=== PATIENT | male | born 1960 | race Caucasian/White ===

== ENCOUNTER 2017-02-21 18:53 | Inpatient (IN) | payer OTHER, MEDICARE ==
[2017-02-21 20:52] LABS: Glucose,Whole Blood 218 mg/dL (75-99)
[2017-02-21] MEDS ORDERED: VANCOMYCIN IV PER PHARMACY 1 EACH MISC MISCELLANE PRN (23:08)
[2017-02-21] MEDS ORDERED: traMADol 50 MG TAB PO PRN (23:15)
[2017-02-21] MEDS ORDERED: INSULIN GLARGINE 100 UNIT/ML 10 ML VIAL SQ SCH (23:15)
[2017-02-21] MEDS ORDERED: ACETAMINOPHEN TAB 325 MG TAB PO PRN (23:16)
[2017-02-21] MEDS ORDERED: ONDANSETRON 4 MG/2 ML VIAL IVP PRN (23:17)
[2017-02-21] MEDS ORDERED: MELATONIN 5 MG TABLET PO PRN (23:18)
[2017-02-22] MEDS: HEPARIN SODIUM,PORCINE 5,000 UNIT/ML 1 ML VIAL SQ SCH ×3 (00:26→21:19)
[2017-02-22] MEDS: SODIUM CHLORIDE 0.9% 1,000 ML IV SCH ×3 (00:27→19:28)
[2017-02-22] MEDS: ERTAPENEM 1 GM in SODIUM CHLORIDE 0.9% 50 ML IVPB SCH ×2 (00:28→22:56)
[2017-02-22] MEDS: PANTOPRAZOLE 40 MG/10 ML VIAL IVP SCH ×2 (00:28→08:52)
[2017-02-22] MEDS: INSULIN LISPRO (humaLOG) 300 UNIT/3 ML VIAL SQ SCH ×3 (00:51→12:51)
[2017-02-22] MEDS ORDERED: VANCOMYCIN 1,500 MG in SODIUM CHLORIDE 0.9% 250 ML IVPB SCH (04:00)
[2017-02-22 05:32] LABS: Glucose,Whole Blood 208 mg/dL (75-99)
--- NOTE | 2017-02-22 07:26 | CONS ---
CONSULTATION This is a 56-year-old gentleman who has been transferred from [facility] with history of right foot, big toe wet gangrene. He had this for the last 1 week. He went to [facility] and has been transferred to [facility] for further treatment. Patient has no history of trauma or insect bite. Patient does not give any history of diabetes. MEDICAL HISTORY: No history of hypertension, coronary artery disease. PERSONAL HISTORY: Allergy to PENICILLIN. PHYSICAL EXAMINATION: Neck is supple. No bruit appreciated. CHEST: Clear to auscultation. HEART: First and second sound is normal. ABDOMEN: Soft, nontender. VASCULAR EXAMINATION: Femorals are palpable bilaterally, dorsal pedis is palpable. Right foot has a wet gangrene of the big toe and with foul odor smell. IMPRESSION: Wet gangrene of the right foot, big toe. PLAN: Right big toe amputation. Risks and complications of bleeding, infection, nonhealing has been discussed. MMODL / IJN: [id number] /
--- NOTE | 2017-02-22 07:38 | XR ---
EXAMINATION TYPE: XR chest 2V DATE OF EXAM: 02/22/2017 COMPARISON: NONE HISTORY: Preoperative clearance. TECHNIQUE: Frontal and lateral views of the chest are obtained. FINDINGS: There is no focal air space opacity, pleural effusion, or pneumothorax seen. The cardiac silhouette size is within normal limits. The osseous structures are intact. IMPRESSION: No acute cardiopulmonary process.
[2017-02-22 10:06] LABS: Basophils % (A) 1 %; CH 28.4; CHCM 31.8; Eosinophils # (A) 0.1 k/uL (0-0.7); Eosinophils % (A) 1 %; HCT 33.3 % (39.0-53.0); HDW 2.68; HGB 10.6 gm/dL (13.0-17.5); Hypochromasia Slight; Luc # (Auto) 0.12; Luc % (Auto) 2; Lymphocytes # (A) 1.3 k/uL (1.0-4.8); Lymphocytes % (A) 23 %; MCH 28.6 pg (25.0-35.0); MCHC 31.8 g/dL (31.0-37.0); MCV 89.7 fL (80.0-100.0); Mean Platelet Volume 7.4; Monocytes # (A) 0.3 k/uL (0-1.0); Monocytes % (A) 5 %; Neutrophils # (A) 3.9 k/uL (1.3-7.7); Neutrophils % (A) 68 %; RBC 3.71 m/uL (4.30-5.90); RDW 12.8 % (11.5-15.5); WBC 5.8 k/uL (3.8-10.6); WBC (Perox) 6.18
[2017-02-22 10:20] LABS: ALT 42 U/L (21-72); AST 19 U/L (17-59); Alkaline Phosphatase 118 U/L (38-126); Anion Gap 4 mmol/L; Blood Urea Nitrogen 10 mg/dL (9-20); Calcium 8.7 mg/dL (8.4-10.2); Carbon Dioxide 29 mmol/L (22-30); Chloride 104 mmol/L (98-107); Glucose 211 mg/dL (74-99); Magnesium 1.9 mg/dL (1.6-2.3); Non-African American GFR(MDRD) >60 (>60 ml/min/1.73 sqM); Potassium 4.3 mmol/L (3.5-5.1); Sodium 137 mmol/L (137-145); Total Bilirubin 0.3 mg/dL (0.2-1.3); Total Protein 6.3 g/dL (6.3-8.2)
[2017-02-22 12:25] LABS: Glucose,Whole Blood 162 mg/dL (75-99)
[2017-02-22 14:47] VITALS: BMI 29.4
[2017-02-22] MEDS: VANCOMYCIN 1,750 MG in SODIUM CHLORIDE 0.9% 250 ML IVPB SCH (15:13)
[2017-02-22] MEDS ORDERED: metroNIDAZOLE 500 MG TAB PO SCH (16:00)
[2017-02-22 16:56] LABS: Glucose,Whole Blood 165 mg/dL (75-99)
[2017-02-22] MEDS: INSULIN ASPART 100 UNIT/ML 1 ML 10 ML VIAL SQ SCH ×2 (18:13→23:39)
[2017-02-22 20:36] LABS: Glucose,Whole Blood 164 mg/dL (75-99)
[2017-02-22] MEDS: INSULIN DETEMIR 100 UNIT/ML 10 ML VIAL SQ SCH (21:19)
--- NOTE | 2017-02-22 22:04 | P.HPIM ---
History of Present Illness H&P Date: 02/22/17 Chief Complaint: Right big toe infection Patient is a 56-year-old male without significant past medical history and has not followed primary care physician before was [facility] with complaints of right big toe infection worsening for the past 1 week. Patient does have subjective chills and no fevers. Due to worsening infection patient presented to ER and patient was transferred to [facility] for evaluation by vascular surgery. Patient denied any history of hypertension or diabetes mellitus. Patient does not take any medications at home. patient does smoke daily.. No history of peripheral vascular disease. No complaints of chest pain or short of breath. No nausea vomiting or abdominal pain. No recent trauma or insect bite cellulitis recently. Review of Systems Constitutional: Patient denies any fever or chills . No generalized weakness or weight loss. Abdomen: Patient denied nausea vomiting and diarrhea and abdominal pain. Cardiovascular: Patient denies any chest pain or short of breath no palpitations. Respiratory: patient denied any cough is from production. No shortness of breath Neurologic: Patient denied any numbness or tingling headache. Musculoskeletal: Patient denies any complaints of joint swelling or deformity. Skin: Negative Psychiatric: Negative Endocrine: No heat or cold intolerance. Denied any polyuria or polydipsia Genitourinary: No dysuria or hematuria. All other 14 point ROS negative except the above Past Medical History History of Any Multi-Drug Resistant Organisms: None Reported Past Surgical History: No Surgical Hx Reported Additional Past Anesthesia/Blood Transfusion Reaction / Comment(s): Never received blood or ansthesia Past Psychological History: No Psychological Hx Reported Smoking Status: Former smoker - Past Family History Mother Additional Family Medical History / Comment(s): Mother of pancreatic cancer Father Additional Family Medical History / Comment(s): Father had CABG Medications and Allergies Home Medications Medication Instructions Recorded Confirmed Type No Known Home Medications [No 02/21/17 02/21/17 History Known Home Medications] Allergies Allergy/AdvReac Type Severity Reaction Status Date / Time Penicillins Allergy Rash/Hives Verified 02/21/17 22:46 Physical Exam Vitals: Vital Signs Temp Pulse Resp BP Pulse Ox 02/22/17 14:31 97.0 F L 89 16 133/73 95 02/22/17 07:00 96.9 F L 92 18 149/85 95 02/22/17 00:00 101 H 16 02/21/17 20:50 97.6 F 101 H 16 148/90 100 Intake and Output 02/22/17 02/22/17 02/22/17 06:59 14:59 22:59 Intake Total 0 800 Balance 0 800 Intake: IV 800 Sodium Chloride 0.9% 1, 800 000 ml @ 100 mls/hr IV . Q10H FÁTIMA Rx#:[id number] Oral 0 Other: # Voids 2 3 Weight 98.5 kg 98.5 kg Patient Weight 02/23/17 06:59 Weight 98.5 kg PHYSICAL EXAMINATION: Patient is lying in the bed comfortably, no acute distress, awake alert and oriented.. HEENT: Normocephalic. Neck is supple. Pupils reactive. Nostrils clear. Oral cavity is moist. Ears reveal no drainage. Neck reveals no JVD, carotid bruits, or thyromegaly. CHEST EXAMINATION: Trachea is central. Symmetrical expansion. Lung minor clear to auscultation and percussion. CARDIAC: Normal S1, S2 with no gallops. No murmurs ABDOMEN: Soft. Bowel sounds normal. No organomegaly. No abdominal bruits. Extremities: reveal no edema. No clubbing or cyanosis. Pulses palpable bilaterally. Neurologically awake, alert, oriented x3 with well-coordinated movements. No focal deficits noted Skin: No rash or skin lesions. Psychiatric: Operative. Nonsuicidal Musculoskeletal: No joint swelling or deformity. Normal range of motion. Right foot big toe wet gangrene and foul swelling Results CBC & Chem 7: 02/22/17 09:35 02/22/17 09:35 Labs: Abnormal Lab Results - Last 24 Hours (Table) 02/21/17 02/22/17 02/22/17 Range/Units 20:49 05:29 09:35 RBC 3.71 L (4.30-5.90) m/uL Hgb 10.6 L (13.0-17.5) gm/dL Hct 33.3 L (39.0-53.0) % Creatinine (0.66-1.25) mg/dL Glucose (74-99) mg/dL POC Glucose (mg/dL) 218 H 208 H (75-99) mg/dL Albumin (3.5-5.0) g/dL 02/22/17 02/22/17 Range/Units 09:35 12:23 RBC (4.30-5.90) m/uL Hgb (13.0-17.5) gm/dL Hct (39.0-53.0) % Creatinine 0.60 L (0.66-1.25) mg/dL Glucose 211 H (74-99) mg/dL POC Glucose (mg/dL) 162 H (75-99) mg/dL Albumin 2.7 L (3.5-5.0) g/dL Thrombosis Risk Factor Assmnt - Choose All That Apply Each Factor Represents 1 point: Age 41-60 years, Swollen legs (current) Thrombosis Risk Factor Assessment Total Risk Factor Score: 2 Thrombosis Risk Factor Assessment Level: Low Risk Assessment and Plan Assessment: #1 right foot wet gangrene. #2 hyperglycemia on admission with possible new onset diabetes. HbA1c pending #3 normocytic anemia #4 active smoking Plan: Patient will be continued on IV antibiotics and follow aztreonam and vancomycin. ID was consulted. Vascular surgery has seen the patient and recommended great toe amputation possibly tomorrow. We will follow A1c level. Patient will be continued on Lantus 10 units daily at bedtime and insulin sliding scale. Continue with wound care. Smoking cessation was counseled extensively. Further recommendations based on the clinical course. Time with Patient: Greater than 30
--- NOTE | 2017-02-22 23:35 | CONS ---
CONSULTATION DATE OF SERVICE: 02/22/2017. REASON FOR CONSULTATION: Right big toe wet gangrene antibiotic recommendation. HISTORY OF PRESENT ILLNESS: The patient is a 56-year-old male with no significant past medical history; however, the patient has not seen a physician in over 25 years. The patient did develop a small ulceration on his right great toe about a month ago and has been treating care taking of himself at home by using some local antibiotic cream. Over the last few days, it has become more swollen, red and he noticed to have some black discoloration to it. The patient denies any pain to the foot area. The patient denies any fever, rigors and chills. With this black discoloration, the patient did present to the [facility]. The patient was subsequently transferred to the [facility] for further evaluation. The patient on a blood workup was noticed to be diabetic with elevated blood sugar that he was not aware of or taking any medication for it. The patient did have history of PENICILLIN ALLERGY. He was started on Invanz and vancomycin. ID was consulted for further recommendation of antibiotic therapy. The patient has been seen by a vascular surgeon, who is planning for an amputation of the right big toe this afternoon. REVIEW OF SYSTEMS: CONSTITUTIONAL: Positive for weakness. No high-grade fever. EYES: No complaint. ENT: No complaint. RESPIRATORY: No complaint. CARDIOVASCULAR: No complaint. GENITOURINARY: No complaint. GASTROINTESTINAL: No complaint. MUSCULOSKELETAL: As per HPI. INTEGUMENTARY: As per HPI. PSYCHOLOGICAL: No complaint. ENDOCRINE: No complaint. NEUROLOGICAL: No complaint. PAST MEDICAL HISTORY: No major illnesses. PAST SURGICAL HISTORY: No major surgery. SOCIAL HISTORY: The patient is . Denies smoking, drinking or any drug use. FAMILY HISTORY: No pertinent findings noticed. ALLERGIES: PENICILLIN WITH A RASH. NO HISTORY OF ANAPHYLAXIS. MEDICATIONS: Include the patient is on: 1. Tylenol. 2. Invanz. 3. Vancomycin. Pharmacy to dose. 4. Heparin. 5. NovoLog. 6. Levemir. 7. Melatonin. 8. Zofran. 9. Protonix. 10.Ultram. EXAMINATION: Blood pressure is 133/73 with a pulse of 89, temperature of 97. He is 95%. GENERAL DESCRIPTION: He is a middle-aged male lying in bed in no distress. No tachypnea or accessory muscle of respiration use. HEENT: Shows some slight pallor. No scleral icterus. Oral mucous membranes dry. NECK: Trachea central. No thyromegaly. LUNGS: Unlabored breathing. Clear to auscultation anteriorly. HEART: S1, S2. Regular rate and rhythm. ABDOMEN: Soft. No tenderness. No guarding or rigidity. EXTREMITIES: No edema of feet. Right great toe was swollen and red with some necrotic patch and a foul-smelling drainage. NEUROLOGICALLY: Patient is awake, alert, oriented x3. Mood and affect normal. LABS: Hemoglobin is 10.6, white count 5.8 with a BUN of 10, creatinine 0.60. Currently culture done at the [facility] before the transfer. DIAGNOSTIC IMPRESSION AND PLAN: 1. Patient diabetic foot infection with wet gangrene of the right big toe , nixon grade 4 , in a patient with underlying diabetes mellitus of which he was not aware, likely a polymicrobial infection. 2. Patient did have a PENICILLIN ALLERGY. That will limit number of antibiotics that will be safe to use. PLAN: 1. Request deep cultures in the OR, both aerobic and anaerobic, to guide further antibiotic therapy. 2. We will keep the patient on Invanz and vancomycin should provide adequate coverage for underlying diabetic foot infection. 3. We will follow up on his clinical condition and culture to further adjust medication if needed. Thank you for this consultation. Will follow this patient along with you. MMBOBL / KONSTANTINN: [id number] / MTDD
[2017-02-23] MEDS: VANCOMYCIN 1,750 MG in SODIUM CHLORIDE 0.9% 250 ML IVPB SCH ×2 (03:55→16:26)
[2017-02-23] MEDS: SODIUM CHLORIDE 0.9% 1,000 ML IV SCH ×2 (05:30→09:58)
[2017-02-23 06:05] LABS: Glucose,Whole Blood 142 mg/dL (75-99)
[2017-02-23] MEDS: INSULIN ASPART 100 UNIT/ML 1 ML 10 ML VIAL SQ SCH ×4 (06:23→21:06)
[2017-02-23] MEDS ORDERED: IV FLUID CONTINUATION 1,000 ML IV ONE (06:56)
[2017-02-23] MEDS ORDERED: PROPOFOL 10 MG/ML 20 ML VIAL IV ONE (07:23)
[2017-02-23] MEDS ORDERED: MIDAZOLAM 2 MG/2 ML VIAL ONE (07:23)
[2017-02-23] MEDS ORDERED: fentaNYL (PF) 50 MCG/ML 2 ML AMP ONE (07:23)
[2017-02-23] MEDS ORDERED: LIDOCAINE 1% INJ 10MG/ML (20 ML MDV) SQ ONE (07:50)
[2017-02-23 08:52] LABS: Glucose,Whole Blood 142 mg/dL (75-99)
[2017-02-23] MEDS: HEPARIN SODIUM,PORCINE 5,000 UNIT/ML 1 ML VIAL SQ SCH ×2 (09:46→21:07)
[2017-02-23] MEDS: PANTOPRAZOLE 40 MG/10 ML VIAL IVP SCH (09:46)
--- NOTE | 2017-02-23 11:47 | OP ---
OPERATIVE REPORT PREOPERATIVE DIAGNOSIS: Wet gangrene of the right foot big toe. PROCEDURE: Amputation of the right foot big toe including head of 1st metatarsal bone. DESCRIPTION OF PROCEDURE: This patient has a history of wet gangrene for the last one week. He came in with foul smelling order with the wet gangrene. The patient was put on IV antibiotic. The patient was brought to the operating room. Right foot was prepped and drapes applied in usual manner. 1% Lidocaine was used to do the block. After that incision was made on the dorsal aspect of the foot for the anterior flap and deepened through skin, fat, fascia. Then the posterior flap incision was made deep into the skin, fat and fascia until we reached the tendons. Tendons were divided on the plantar and dorsal aspect of the foot. Then we reached the head of the metatarsal bone and using bone cutter we removed the head of the metatarsal bone and there was some bleeding points which were controlled by 3-0 Prolene with sutures and after that specimen was removed. The fascia was approximated with 3-0 Vicryl and the skin was closed with 3-0 nylon mattress interrupted sutures. Dressing was applied. The patient tolerated the procedure well. MMODL / IJN: [id number] /
[2017-02-23 12:17] LABS: Glucose,Whole Blood 197 mg/dL (75-99)
[2017-02-23 17:10] LABS: Glucose,Whole Blood 183 mg/dL (75-99)
--- NOTE | 2017-02-23 17:13 | P.PN ---
Subjective Progress Note Date: 02/23/17 Progress note being dictated for Dr. Taylor Interval history:Patient is a 56-year-old male without significant past medical history and has not followed primary care physician before was initially presented to [facility] with complaints of right big toe infection worsening for the past 1 week. Patient does have subjective chills and no fevers. Due to worsening infection patient presented to ER and patient was transferred to [facility] for evaluation by vascular surgery. Patient denied any history of hypertension or diabetes mellitus. Patient does not take any medications at home. patient does smoke daily.. No history of peripheral vascular disease. No complaints of chest pain or short of breath. No nausea vomiting or abdominal pain. No recent trauma or insect bite cellulitis recently. 02/23/2017 maintained on Invanz and vancomycin as per infectious disease. evaluated by vascular surgery, underwent amputation of right big toe this morning, tolerated well. Pain controlled. Denies chest pain, palpitations or increasing shortness of breath. Blood sugars better controlled. Objective - Vital Signs Vital signs: Vital Signs Temp 97.0 F L 02/23/17 15:00 Pulse 95 02/23/17 15:00 Resp 16 02/23/17 15:00 BP 126/75 02/23/17 15:00 Pulse Ox 97 02/23/17 15:00 Intake & Output 02/22/17 02/23/17 02/23/17 18:59 06:59 18:59 Intake Total 800 600 Output Total 10 Balance 800 590 Weight 98.5 kg Intake: IV 800 600 Sodium Chloride 0.9% 1, 800 000 ml @ 100 mls/hr IV . Q10H FÁTIMA Rx#:[id number] Output: Estimated Blood Loss 10 Other: # Voids 3 1 4 - Exam Patient is lying in the bed comfortably, no acute distress, awake alert and oriented.. HEENT: Normocephalic. Neck is supple. Pupils reactive. Nostrils clear. Oral cavity is moist. Ears reveal no drainage. Neck reveals no JVD, carotid bruits, or thyromegaly. CHEST EXAMINATION: Trachea is central. Symmetrical expansion. Lung minor clear to auscultation and percussion. CARDIAC: Normal S1, S2 with no gallops. No murmurs ABDOMEN: Soft. Bowel sounds normal. No organomegaly. No abdominal bruits. Extremities: reveal no edema. No clubbing or cyanosis. Pulses palpable bilaterally. Right foot dressing clean dry and intact Neurologically awake, alert, oriented x3 with well-coordinated movements. No focal deficits noted Skin: No rash or skin lesions. Psychiatric: Operative. Nonsuicidal Musculoskeletal: No joint swelling or deformity. Normal range of motion. Right foot big toe wet gangrene and foul swelling - Labs CBC & Chem 7: 02/22/17 09:35 02/22/17 09:35 Labs: Abnormal Lab Results - Last 24 Hours (Table) 02/22/17 02/22/17 02/22/17 Range/Units 09:35 16:55 20:34 POC Glucose (mg/dL) 165 H 164 H (75-99) mg/dL Hemoglobin A1c 10.2 H (4.0-6.0) % 02/23/17 02/23/17 02/23/17 Range/Units 05:46 08:50 12:07 POC Glucose (mg/dL) 142 H 142 H 197 H (75-99) mg/dL Hemoglobin A1c (4.0-6.0) % Assessment and Plan Assessment: #1 right foot wet gangrene, status post right great toe amputation. #2 hyperglycemia on admission with possible new onset diabetes. HbA1c 10.2 #3 normocytic anemia #4 active smoking Plan: Patient will be continued on IV antibiotics and follow aztreonam and vancomycin. Antibiotics as per ID. Cultures pending. Follow closely with vascular surgery. Sugars much better control- Maintain current diabetic regimen ,Lantus 10 units daily at bedtime and insulin sliding scale. Smoking cessation readdressed. Further recommendations based on the clinical course. The impression and plan of care has been dictated as directed. : I performed a history and examination of this patient, discussed the same with the dictator. I agree with the dictator's note ,documented as a scribe. Any additional findings or plans will be noted.
[2017-02-23 20:38] LABS: Glucose,Whole Blood 231 mg/dL (75-99)
[2017-02-23] MEDS: INSULIN DETEMIR 100 UNIT/ML 10 ML VIAL SQ SCH (21:07)
[2017-02-24] MEDS: ERTAPENEM 1 GM in SODIUM CHLORIDE 0.9% 50 ML IVPB SCH ×2 (00:29→23:19)
[2017-02-24] MEDS: SODIUM CHLORIDE 0.9% 1,000 ML IV SCH ×2 (00:29→16:47)
[2017-02-24] MEDS ORDERED: VANCOMYCIN TROUGH DUE 1 EACH MISC MISCELLANE ONE (03:00)
[2017-02-24 03:26] LABS: Basophils % (A) 1 %; CH 28.2; CHCM 31.3; Eosinophils # (A) 0.1 k/uL (0-0.7); Eosinophils % (A) 1 %; HCT 33.3 % (39.0-53.0); HDW 2.68; HGB 10.4 gm/dL (13.0-17.5); Hypochromasia Slight; Luc # (Auto) 0.13; Luc % (Auto) 2; Lymphocytes # (A) 1.8 k/uL (1.0-4.8); Lymphocytes % (A) 23 %; MCH 28.4 pg (25.0-35.0); MCHC 31.4 g/dL (31.0-37.0); MCV 90.6 fL (80.0-100.0); Mean Platelet Volume 7.3; Monocytes # (A) 0.5 k/uL (0-1.0); Monocytes % (A) 7 %; Neutrophils # (A) 5.2 k/uL (1.3-7.7); Neutrophils % (A) 67 %; RBC 3.68 m/uL (4.30-5.90); WBC 7.8 k/uL (3.8-10.6); WBC (Perox) 7.77
[2017-02-24 03:48] LABS: Anion Gap 1 mmol/L; Blood Urea Nitrogen 9 mg/dL (9-20); Calcium 8.6 mg/dL (8.4-10.2); Carbon Dioxide 33 mmol/L (22-30); Chloride 102 mmol/L (98-107); Glucose 234 mg/dL (74-99); Non-African American GFR(MDRD) >60 (>60 ml/min/1.73 sqM); Potassium 4.2 mmol/L (3.5-5.1); Sodium 136 mmol/L (137-145)
[2017-02-24] MEDS: VANCOMYCIN 1,750 MG in SODIUM CHLORIDE 0.9% 250 ML IVPB SCH (04:44)
--- NOTE | 2017-02-24 04:59 | PN ---
PROGRESS NOTE DATE OF SERVICE: 02/23/2017. REASON FOR FOLLOWUP: Right big toe right gangrene. INTERVAL HISTORY: The patient is afebrile. The patient is status post right big toe amputation this morning. Patient tolerated the procedure post surgery. No significant or worsening pain to the right great toe area. Denies any chest pain, shortness of breath or cough. No abdominal pain. No diarrhea. EXAMINATION: Blood pressure is 149/88 with a pulse of 98, temperature of 97.8. He is 99% on room air. General description is a middle-aged male lying in bed in no distress. Respiratory system unlabored breathing, clear to auscultation anteriorly. Heart S1, S2 regular rate and rhythm. Abdomen: Soft, no tenderness. Right foot is currently dressed up. No obvious drainage on the dressing. DIAGNOSTIC IMPRESSION AND PLAN: Patient with right big toe right gangrene status post amputation. Wound cultures were requested. Unfortunately, not collected to guide antibiotic therapy. He will be kept on the Invanz and Vanco at this point. Continue supportive care. MMODL / IJN: [id number] / MTDD
[2017-02-24 07:25] LABS: Glucose,Whole Blood 184 mg/dL (75-99)
[2017-02-24] MEDS: HEPARIN SODIUM,PORCINE 5,000 UNIT/ML 1 ML VIAL SQ SCH ×2 (07:57→21:34)
[2017-02-24] MEDS: PANTOPRAZOLE 40 MG TABLET PO SCH (07:58)
[2017-02-24] MEDS: INSULIN ASPART 100 UNIT/ML 1 ML 10 ML VIAL SQ SCH ×4 (08:12→21:35)
[2017-02-24 13:00] LABS: Glucose,Whole Blood 212 mg/dL (75-99)
--- NOTE | 2017-02-24 15:52 | P.PN ---
Progress Note - Text 56-year-old white male who came with infected wet gangrene of the right foot big toe patient went yesterday with the right toe amputation with primary closure patient is an IV antibiotic under care of infectious disease today we have changed the dressing stump site looks clean and healing we will continue with IV antibiotic
--- NOTE | 2017-02-24 16:18 | P.PN ---
Subjective Progress Note Date: 02/24/17 Progress note being dictated for Dr. Taylor Interval history:Patient is a 56-year-old male without significant past medical history and has not followed primary care physician before was initially presented to [facility] with complaints of right big toe infection worsening for the past 1 week. Patient does have subjective chills and no fevers. Due to worsening infection patient presented to ER and patient was transferred to [facility] for evaluation by vascular surgery. Patient denied any history of hypertension or diabetes mellitus. Patient does not take any medications at home. patient does smoke daily.. No history of peripheral vascular disease. No complaints of chest pain or short of breath. No nausea vomiting or abdominal pain. No recent trauma or insect bite cellulitis recently. 02/23/2017 maintained on Invanz and vancomycin as per infectious disease. evaluated by vascular surgery, underwent amputation of right big toe this morning, tolerated well. Pain controlled. Denies chest pain, palpitations or increasing shortness of breath. Blood sugars better controlled. 02/24/2017. Maintained on antibiotics as per infectious disease. No cultures available.T-max 100.2 Dressing change completed per vascular surgery. Pain controlled. Hemoglobin A1c 10.2. Blood sugars ranging from 180s to low 200s .Denies chest pain, palpitations or increasing shortness of breath. Objective - Vital Signs Vital signs: Vital Signs Temp 98.4 F 02/24/17 14:23 Pulse 104 H 02/24/17 14:23 Resp 18 02/24/17 14:23 BP 127/70 02/24/17 14:23 Pulse Ox 97 02/24/17 14:23 Intake & Output 02/23/17 02/24/17 02/24/17 18:59 06:59 18:59 Intake Total 600 Output Total 10 Balance 590 Intake: IV 600 Output: Estimated Blood Loss 10 Other: # Voids 4 0 2 # Bowel Movements 0 - Exam Patient is lying in the bed comfortably, no acute distress, awake alert and oriented.. HEENT: Normocephalic. Neck is supple. Pupils reactive. Nostrils clear. Oral cavity is moist. Ears reveal no drainage. Neck reveals no JVD, carotid bruits, or thyromegaly. CHEST EXAMINATION: Trachea is central. Symmetrical expansion. Lung minor clear to auscultation and percussion. CARDIAC: Normal S1, S2 with no gallops. No murmurs ABDOMEN: Soft. Bowel sounds normal. No organomegaly. No abdominal bruits. Extremities: reveal no edema. No clubbing or cyanosis. Pulses palpable bilaterally. Right foot dressing clean dry and intact Neurologically awake, alert, oriented x3 with well-coordinated movements. No focal deficits noted Skin: No rash or skin lesions. Psychiatric: Operative. Nonsuicidal Musculoskeletal: No joint swelling or deformity. Normal range of motion. Right foot big toe wet gangrene and foul swelling - Labs CBC & Chem 7: 02/24/17 02:59 02/24/17 02:59 Labs: Abnormal Lab Results - Last 24 Hours (Table) 02/23/17 02/23/17 02/24/17 Range/Units 17:07 20:36 02:59 RBC 3.68 L (4.30-5.90) m/uL Hgb 10.4 L (13.0-17.5) gm/dL Hct 33.3 L (39.0-53.0) % Sodium (137-145) mmol/L Carbon Dioxide (22-30) mmol/L Glucose (74-99) mg/dL POC Glucose (mg/dL) 183 H 231 H (75-99) mg/dL 02/24/17 02/24/17 02/24/17 Range/Units 02:59 07:16 12:17 RBC (4.30-5.90) m/uL Hgb (13.0-17.5) gm/dL Hct (39.0-53.0) % Sodium 136 L (137-145) mmol/L Carbon Dioxide 33 H (22-30) mmol/L Glucose 234 H (74-99) mg/dL POC Glucose (mg/dL) 184 H 212 H (75-99) mg/dL Assessment and Plan Assessment: #1 right foot wet gangrene, status post right great toe amputation. #2 hyperglycemia on admission with possible new onset diabetes. HbA1c 10.2 #3 normocytic anemia #4 active smoking Plan: Patient will be continued on IV antibiotics and follow aztreonam and vancomycin. Antibiotics as per ID. diabetes education, Levemir increased, close monitoring of Accu-Cheks. Smoking cessation readdressed. Further recommendations based on the clinical course. The impression and plan of care has been dictated as directed. : I performed a history and examination of this patient, discussed the same with the dictator. I agree with the dictator's note ,documented as a scribe. Any additional findings or plans will be noted.
[2017-02-24] MEDS: VANCOMYCIN 2,000 MG in SODIUM CHLORIDE 0.9% 500 ML IVPB SCH (16:45)
[2017-02-24 16:59] LABS: Glucose,Whole Blood 216 mg/dL (75-99)
[2017-02-24 20:57] LABS: Glucose,Whole Blood 246 mg/dL (75-99)
[2017-02-24] MEDS: INSULIN DETEMIR 100 UNIT/ML 10 ML VIAL SQ SCH (21:33)
--- NOTE | 2017-02-24 21:51 | PN ---
PROGRESS NOTE DATE OF SERVICE: 02/24/2017. REASON FOR FOLLOWUP: Right big toe right gangrene osteomyelitis. INTERVAL HISTORY: The patient is afebrile. He is breathing comfortably. Denies any pain in the right foot area. The patient denies any chest pain, shortness of breath or cough. No abdominal pain. No diarrhea. EXAMINATION: Blood pressure is 127/70 with a pulse of 104, temperature 98.4. He is 97% on room air. General description is a middle-aged male lying in bed in no distress. Respiratory system: Unlabored breathing. Clear to auscultation anteriorly. Heart S1, S2. Regular rate and rhythm. Abdomen soft, no tenderness. LABS: Hemoglobin is 10.1, white count 7.8 with a BUN of 9, creatinine 0.70. DIAGNOSTIC IMPRESSION AND PLAN: Patient with right big toe wet gangrene, likely osteomyelitis status post right big toe amputation. The patient still has some significant inflammation. Hence, recommend getting a PICC line on Monday for IV antibiotic therapy on discharge. Continue with supportive care. Family present at bedside. Their questions were answered. MMODL / IJN: [id number] /
[2017-02-25] MEDS: SODIUM CHLORIDE 0.9% 1,000 ML IV SCH ×3 (06:29→16:45)
[2017-02-25] MEDS: VANCOMYCIN 2,000 MG in SODIUM CHLORIDE 0.9% 500 ML IVPB SCH ×2 (06:31→15:30)
[2017-02-25 07:26] LABS: Glucose,Whole Blood 118 mg/dL (75-99)
[2017-02-25] MEDS: INSULIN ASPART 100 UNIT/ML 1 ML 10 ML VIAL SQ SCH ×5 (08:00→21:05)
[2017-02-25] MEDS: PANTOPRAZOLE 40 MG TABLET PO SCH (08:02)
[2017-02-25] MEDS: HEPARIN SODIUM,PORCINE 5,000 UNIT/ML 1 ML VIAL SQ SCH ×2 (08:02→21:08)
[2017-02-25 08:07] LABS: Basophils % (A) 1 %; CH 28.7; CHCM 31.5; Eosinophils # (A) 0.1 k/uL (0-0.7); Eosinophils % (A) 2 %; HDW 2.66; HGB 10.7 gm/dL (13.0-17.5); Hypochromasia Slight; Luc % (Auto) 2; Lymphocytes # (A) 1.6 k/uL (1.0-4.8); Lymphocytes % (A) 23 %; MCH 28.9 pg (25.0-35.0); MCHC 31.6 g/dL (31.0-37.0); MCV 91.5 fL (80.0-100.0); Mean Platelet Volume 7.3; Monocytes # (A) 0.4 k/uL (0-1.0); Monocytes % (A) 6 %; Neutrophils # (A) 4.6 k/uL (1.3-7.7); Neutrophils % (A) 68 %; RBC 3.71 m/uL (4.30-5.90); RDW 13.1 % (11.5-15.5); WBC 6.8 k/uL (3.8-10.6); WBC (Perox) 6.97
[2017-02-25 08:21] LABS: Anion Gap 5 mmol/L; Blood Urea Nitrogen 6 mg/dL (9-20); Calcium 8.6 mg/dL (8.4-10.2); Carbon Dioxide 29 mmol/L (22-30); Chloride 103 mmol/L (98-107); Glucose 114 mg/dL (74-99); Non-African American GFR(MDRD) >60 (>60 ml/min/1.73 sqM); Potassium 4.3 mmol/L (3.5-5.1); Sodium 137 mmol/L (137-145)
[2017-02-25 12:31] LABS: Glucose,Whole Blood 181 mg/dL (75-99)
--- NOTE | 2017-02-25 13:49 | PN ---
PROGRESS NOTE DATE OF SERVICE: 02/25/2017 REASON FOR FOLLOWUP: Right big toe diabetic foot infection. INTERVAL HISTORY: The patient is afebrile. He is breathing comfortably. Denies having any chest pain, shortness of breath, cough. No abdominal pain or any worsening pain in the right foot area. EXAMINATION: Blood pressure 142/80 with a pulse of 96, temperature 98. He is 97% on room air. General description is a middle-aged male lying in bed in no distress. RESPIRATORY SYSTEM: Unlabored breathing. Clear to auscultation anteriorly. HEART: S1, S2. Regular rate and rhythm. ABDOMEN: Soft, no tenderness. RIGHT FOOT: Dressed up. No obvious drainage on the dressing. LABS: Hemoglobin is 10.7, white count of 6.8. BUN of 6, creatinine 0.64. DIAGNOSTIC IMPRESSION AND PLAN: Patient with right diabetic foot infection with right gangrene status post right big toe amputation, currently on Invanz and Vanco because of his PENICILLIN ALLERGY. In view of extensive infection, will get PICC line and IV antibiotic therapy in outpatient setting. Continue supportive care. MMODL / IJN: [id number] /
[2017-02-25 16:34] LABS: Glucose,Whole Blood 189 mg/dL (75-99)
[2017-02-25 20:49] LABS: Glucose,Whole Blood 126 mg/dL (75-99)
[2017-02-25] MEDS: INSULIN DETEMIR 100 UNIT/ML 10 ML VIAL SQ SCH (21:09)
--- NOTE | 2017-02-25 23:19 | P.PN ---
Subjective Progress Note Date: 02/25/17 Principal diagnosis: Toe gangrene Interval history:Patient is a 56-year-old male without significant past medical history and has not followed primary care physician before [facility] with complaints of right big toe infection worsening for the past 1 week. Patient does have subjective chills and no fevers. Due to worsening infection patient presented to ER and patient was transferred to [facility] for evaluation by vascular surgery. Patient denied any history of hypertension or diabetes mellitus. Patient does not take any medications at home. patient does smoke daily.. No history of peripheral vascular disease. No complaints of chest pain or short of breath. No nausea vomiting or abdominal pain. No recent trauma or insect bite cellulitis recently. 02/23/2017 maintained on Invanz and vancomycin as per infectious disease. evaluated by vascular surgery, underwent amputation of right big toe this morning, tolerated well. Pain controlled. Denies chest pain, palpitations or increasing shortness of breath. Blood sugars better controlled. 02/24/2017. Maintained on antibiotics as per infectious disease. No cultures available.T-max 100.2 Dressing change completed per vascular surgery. Pain controlled. Hemoglobin A1c 10.2. Blood sugars ranging from 180s to low 200s .Denies chest pain, palpitations or increasing shortness of breath. 02/25/2017 Patient has been afebrile last 24 hours. Continued on antibiotics. Blood sugar is still elevated Willyard preprandial aspart 5 units 3 times a day before meals. ID is following for possible IV antibiotics upon discharge. Otherwise patient denied any worsening pain. No chest pain no shortness of breath. Objective - Vital Signs Vital signs: Vital Signs Temp 98.0 F 02/25/17 15:00 Pulse 98 02/25/17 15:00 Resp 18 02/25/17 15:00 BP 126/84 02/25/17 15:00 Pulse Ox 98 02/25/17 15:00 Intake & Output 02/25/17 02/25/17 02/26/17 06:59 18:59 06:59 Intake Total 600 Balance 600 Intake: Oral 600 Other: # Voids 1 1 - Exam Patient is lying in the bed comfortably, no acute distress, awake alert and oriented.. HEENT: Normocephalic. Neck is supple. Pupils reactive. Nostrils clear. Oral cavity is moist. Ears reveal no drainage. Neck reveals no JVD, carotid bruits, or thyromegaly. CHEST EXAMINATION: Trachea is central. Symmetrical expansion. Lung minor clear to auscultation and percussion. CARDIAC: Normal S1, S2 with no gallops. No murmurs ABDOMEN: Soft. Bowel sounds normal. No organomegaly. No abdominal bruits. Extremities: reveal no edema. No clubbing or cyanosis. Pulses palpable bilaterally. Right foot dressing clean dry and intact Neurologically awake, alert, oriented x3 with well-coordinated movements. No focal deficits noted Skin: No rash or skin lesions. Psychiatric: Operative. Nonsuicidal Musculoskeletal: No joint swelling or deformity. Normal range of motion. Right foot big toe wet gangrene and foul swelling - Labs CBC & Chem 7: 02/25/17 07:14 02/25/17 07:14 Labs: Abnormal Lab Results - Last 24 Hours (Table) 02/25/17 02/25/17 02/25/17 Range/Units 07:14 07:14 07:23 RBC 3.71 L (4.30-5.90) m/uL Hgb 10.7 L (13.0-17.5) gm/dL Hct 34.0 L (39.0-53.0) % BUN 6 L (9-20) mg/dL Creatinine 0.64 L (0.66-1.25) mg/dL Glucose 114 H (74-99) mg/dL POC Glucose (mg/dL) 118 H (75-99) mg/dL 02/25/17 02/25/17 02/25/17 Range/Units 12:05 16:31 20:47 RBC (4.30-5.90) m/uL Hgb (13.0-17.5) gm/dL Hct (39.0-53.0) % BUN (9-20) mg/dL Creatinine (0.66-1.25) mg/dL Glucose (74-99) mg/dL POC Glucose (mg/dL) 181 H 189 H 126 H (75-99) mg/dL Microbiology - Last 24 Hours (Table) 02/24/17 13:22 Blood Culture - Preliminary Blood No Growth after 24 hours Assessment and Plan Assessment: #1 right foot big toe wet gangrene. Status post amputation #2 hyperglycemia on admission with possible new onset diabetes. HbA1c 10.2 #3 normocytic anemia #4 active smoking Plan: Patient will be continued on IV antibiotics and follow aztreonam and vancomycin. ID is following. Patient will be continued on Lantus 15 daily at bedtime and add 5 units aspart before meals and continue insulin sliding scale. Continue with wound care. Smoking cessation was counseled extensively. Further recommendations based on the clinical course. Possible discharge on Monday with IV antibiotics
[2017-02-26] MEDS: ERTAPENEM 1 GM in SODIUM CHLORIDE 0.9% 50 ML IVPB SCH ×2 (00:29→23:53)
[2017-02-26] MEDS: SODIUM CHLORIDE 0.9% 1,000 ML IV SCH ×2 (04:47→16:17)
[2017-02-26] MEDS: VANCOMYCIN 2,000 MG in SODIUM CHLORIDE 0.9% 500 ML IVPB SCH (04:48)
[2017-02-26 07:08] LABS: Glucose,Whole Blood 201 mg/dL (75-99)
[2017-02-26] MEDS: HEPARIN SODIUM,PORCINE 5,000 UNIT/ML 1 ML VIAL SQ SCH ×2 (07:39→21:27)
[2017-02-26] MEDS: PANTOPRAZOLE 40 MG TABLET PO SCH (07:39)
[2017-02-26] MEDS: INSULIN ASPART 100 UNIT/ML 1 ML 10 ML VIAL SQ SCH ×8 (07:40→23:54)
[2017-02-26 08:06] LABS: Basophils % (A) 1 %; CH 29.3; CHCM 31.9; Eosinophils # (A) 0.1 k/uL (0-0.7); Eosinophils % (A) 3 %; HDW 2.84; HGB 10.5 gm/dL (13.0-17.5); Hypochromasia Slight; Luc # (Auto) 0.09; Luc % (Auto) 2; Lymphocytes # (A) 1.2 k/uL (1.0-4.8); Lymphocytes % (A) 21 %; MCH 28.5 pg (25.0-35.0); MCHC 30.8 g/dL (31.0-37.0); MCV 92.4 fL (80.0-100.0); Mean Platelet Volume 6.8; Monocytes # (A) 0.4 k/uL (0-1.0); Monocytes % (A) 7 %; Neutrophils # (A) 3.9 k/uL (1.3-7.7); Neutrophils % (A) 67 %; RBC 3.67 m/uL (4.30-5.90); RDW 12.2 % (11.5-15.5); WBC 5.8 k/uL (3.8-10.6)
[2017-02-26 08:15] LABS: Anion Gap 1 mmol/L; Blood Urea Nitrogen 8 mg/dL (9-20); C Reactive Protein 38.4 mg/L (<10.0); Calcium 8.7 mg/dL (8.4-10.2); Carbon Dioxide 33 mmol/L (22-30); Chloride 103 mmol/L (98-107); Glucose 206 mg/dL (74-99); Non-African American GFR(MDRD) >60 (>60 ml/min/1.73 sqM); Potassium 4.5 mmol/L (3.5-5.1); Sodium 137 mmol/L (137-145)
[2017-02-26 09:13] LABS: Erythrocyte Sedimentation Rate 69 mm/hr (0-15)
--- NOTE | 2017-02-26 09:47 | PN ---
PROGRESS NOTE 56 -year-old gentleman with infected right foot big toe. For that patient had right foot big toe amputation with primary closure. Patient on IV antibiotic. The patient is due to have a PICC line for long-term antibiotics. If the patient goes home on Monday will follow in my office on . Recommend nonweightbearing. MMBOBL / IJN: [id number] /
[2017-02-26 12:13] LABS: Glucose,Whole Blood 173 mg/dL (75-99)
[2017-02-26] MEDS ORDERED: VANCOMYCIN TROUGH DUE 1 EACH MISC MISCELLANE ONE (15:00)
[2017-02-26 17:16] LABS: Glucose,Whole Blood 209 mg/dL (75-99)
[2017-02-26 20:50] LABS: Glucose,Whole Blood 177 mg/dL (75-99)
[2017-02-26] MEDS: INSULIN DETEMIR 100 UNIT/ML 10 ML VIAL SQ SCH (21:27)
[2017-02-26] MEDS ORDERED: INSULIN DETEMIR 100 UNIT/ML 10 ML VIAL SQ SCH (22:34)
--- NOTE | 2017-02-26 22:36 | P.PN ---
Subjective Progress Note Date: 02/26/17 Principal diagnosis: Toe gangrene Interval history:Patient is a 56-year-old male without significant past medical history and has not followed primary care physician before was initially presented to [facility] with complaints of right big toe infection worsening for the past 1 week. Patient does have subjective chills and no fevers. Due to worsening infection patient presented to ER and patient was transferred to [facility] for evaluation by vascular surgery. Patient denied any history of hypertension or diabetes mellitus. Patient does not take any medications at home. patient does smoke daily.. No history of peripheral vascular disease. No complaints of chest pain or short of breath. No nausea vomiting or abdominal pain. No recent trauma or insect bite cellulitis recently. 02/23/2017 maintained on Invanz and vancomycin as per infectious disease. evaluated by vascular surgery, underwent amputation of right big toe this morning, tolerated well. Pain controlled. Denies chest pain, palpitations or increasing shortness of breath. Blood sugars better controlled. 02/24/2017. Maintained on antibiotics as per infectious disease. No cultures available.T-max 100.2 Dressing change completed per vascular surgery. Pain controlled. Hemoglobin A1c 10.2. Blood sugars ranging from 180s to low 200s .Denies chest pain, palpitations or increasing shortness of breath. 02/25/2017 Patient has been afebrile last 24 hours. Continued on antibiotics. Blood sugar is still elevated Willyard preprandial aspart 5 units 3 times a day before meals. ID is following for possible IV antibiotics upon discharge. Otherwise patient denied any worsening pain. No chest pain no shortness of breath. 02/26/2017 Patient is afebrile and is on antibiotics. Blood sugar is still elevated at around 200. We'll increase insulin dose. Otherwise no acute overnight issues. Current medications reviewed. Objective - Vital Signs Vital signs: Vital Signs Temp 97.8 F 02/26/17 15:00 Pulse 102 H 02/26/17 16:00 Resp 18 02/26/17 16:00 BP 132/67 02/26/17 15:00 Pulse Ox 99 02/26/17 15:00 Intake & Output 02/26/17 02/26/17 02/27/17 06:59 18:59 06:59 Other: # Voids 2 2 # Bowel Movements 1 1 - Labs CBC & Chem 7: 02/26/17 07:15 02/26/17 07:15 Labs: Abnormal Lab Results - Last 24 Hours (Table) 02/25/17 02/26/17 02/26/17 Range/Units 20:47 07:05 07:15 RBC 3.67 L (4.30-5.90) m/uL Hgb 10.5 L (13.0-17.5) gm/dL Hct 34.0 L (39.0-53.0) % MCHC 30.8 L (31.0-37.0) g/dL ESR 69 H (0-15) mm/hr Carbon Dioxide (22-30) mmol/L BUN (9-20) mg/dL Glucose (74-99) mg/dL POC Glucose (mg/dL) 126 H 201 H (75-99) mg/dL C-Reactive Protein (<10.0) mg/L 02/26/17 02/26/17 02/26/17 Range/Units 07:15 12:04 17:06 RBC (4.30-5.90) m/uL Hgb (13.0-17.5) gm/dL Hct (39.0-53.0) % MCHC (31.0-37.0) g/dL ESR (0-15) mm/hr Carbon Dioxide 33 H (22-30) mmol/L BUN 8 L (9-20) mg/dL Glucose 206 H (74-99) mg/dL POC Glucose (mg/dL) 173 H 209 H (75-99) mg/dL C-Reactive Protein 38.4 H (<10.0) mg/L Microbiology - Last 24 Hours (Table) 02/26/17 14:00 Wound Culture - Preliminary Foot - Right 02/26/17 14:00 Anaerobic Culture - Preliminary Foot - Right 02/24/17 13:22 Blood Culture - Preliminary Blood No Growth after 48 hours Assessment and Plan Assessment: #1 right foot big toe wet gangrene. Status post amputation #2 hyperglycemia on admission with possible new onset diabetes. HbA1c 10.2 #3 normocytic anemia #4 active smoking Plan: Patient will be continued on IV antibiotics and follow aztreonam and vancomycin. ID is following. Increase Lantus 18 daily at bedtime and 6 units aspart before meals and continue insulin sliding scale. Continue with wound care. Smoking cessation was counseled extensively. Further recommendations based on the clinical course. Possible discharge on Monday with IV antibiotics
[2017-02-27] MEDS: SODIUM CHLORIDE 0.9% 1,000 ML IV SCH ×2 (02:09→13:00)
[2017-02-27 07:25] LABS: Glucose,Whole Blood 110 mg/dL (75-99)
[2017-02-27 07:26] VITALS: RESP 16
[2017-02-27] MEDS: INSULIN ASPART 100 UNIT/ML 1 ML 10 ML VIAL SQ SCH ×6 (08:17→17:39)
[2017-02-27] MEDS: PANTOPRAZOLE 40 MG TABLET PO SCH (08:28)
[2017-02-27] MEDS: HEPARIN SODIUM,PORCINE 5,000 UNIT/ML 1 ML VIAL SQ SCH (08:28)
--- NOTE | 2017-02-27 11:22 | PN ---
PROGRESS NOTE DATE OF SERVICE: 02/27/2017 REASON FOR FOLLOWUP: Right big toe wet gangrene and osteomyelitis. INTERVAL HISTORY: The patient is afebrile. He is breathing comfortably. Denies any chest pain, shortness of breath or cough. No abdominal pain or any pain in the right foot area. PHYSICAL EXAMINATION: On examination, blood pressure 144/85 with a pulse of 102, temperature 97.3. He is 96% on room air. General description is a middle aged male, lying in bed in no distress. RESPIRATORY SYSTEM: Unlabored breathing, clear to auscultation anteriorly. HEART: S1, S2. Regular rate and rhythm. ABDOMEN: Soft, no tenderness. Right foot is currently dressed up, no obvious drainage on the dressing. LABS: Hemoglobin is 10.5, white count 5.8. Blood culture so far negative. DIAGNOSTIC IMPRESSION AND PLAN: Patient with right diabetic foot infection with wet gangrene, status post amputation. Plan at this time is to keep the patient on Invanz for at least 4 weeks with close outpatient followup with weekly monitoring of CBC, BMP and Sed rates scripts were written for the patient. MMODL / IJN: [id number] / MAGDA
[2017-02-27 13:02] LABS: Glucose,Whole Blood 125 mg/dL (75-99)
[2017-02-27 15:44] VITALS: BP 113/73; PULSE 108; TEMP 98.1
[2017-02-27] MEDS: ERTAPENEM 1 GM in SODIUM CHLORIDE 0.9% 50 ML IVPB SCH (16:53)
[2017-02-27 17:24] LABS: Glucose,Whole Blood 109 mg/dL (75-99)
--- NOTE | 2017-02-27 23:33 | P.DS ---
Providers Date of admission: 02/21/17 20:25 Expected date of discharge: 02/27/17 Attending physician: Sampson Rodas Consults: 02/21/17 23:24 Consult Physician Routine Consulting Provider: Jaye Tipton Consult Reason/Comments: Infected Right great toe Do you want consulting provider notified?: Yes, Notify in am 02/21/17 23:27 Consult Physician Routine Consulting Provider: Lucas Wells Consult Reason/Comments: Infected Right great toe Do you want consulting provider notified?: Yes, Notify in am Primary care physician: Stated None Hospital Course: Discharge diagnosis #1 right foot big toe wet gangrene. Status post amputation. On IV antibiotics #2 hyperglycemia on admission with possible new onset diabetes. HbA1c 10.2 #3 normocytic anemia #4 active smoking Hospital course Interval history:Patient is a 56-year-old male without significant past medical history and has not followed primary care physician before was initially presented to [facility] with complaints of right big toe infection worsening for the past 1 week. Patient does have subjective chills and no fevers. Due to worsening infection patient presented to ER and patient was transferred to [facility] for evaluation by vascular surgery. Patient denied any history of hypertension or diabetes mellitus. Patient does not take any medications at home. patient does smoke daily.. No history of peripheral vascular disease. No complaints of chest pain or short of breath. No nausea vomiting or abdominal pain. No recent trauma or insect bite cellulitis recently. 02/23/2017 maintained on Invanz and vancomycin as per infectious disease. evaluated by vascular surgery, underwent amputation of right big toe this morning, tolerated well. Pain controlled. Denies chest pain, palpitations or increasing shortness of breath. Blood sugars better controlled. 02/24/2017. Maintained on antibiotics as per infectious disease. No cultures available.T-max 100.2 Dressing change completed per vascular surgery. Pain controlled. Hemoglobin A1c 10.2. Blood sugars ranging from 180s to low 200s .Denies chest pain, palpitations or increasing shortness of breath. 02/25/2017 Patient has been afebrile last 24 hours. Continued on antibiotics. Blood sugar is still elevated Willyard preprandial aspart 5 units 3 times a day before meals. ID is following for possible IV antibiotics upon discharge. Otherwise patient denied any worsening pain. No chest pain no shortness of breath. 02/26/2017 Patient is afebrile and is on antibiotics. Blood sugar is still elevated at around 200. We'll increase insulin dose. Otherwise no acute overnight issues. 02/27/2017 Patient did improve clinically. No fever no chills. Blood sugar is fairly controlled. Patient is being discharged home on IV antibiotics and insulin regimen Patient was continued on IV antibiotics and follow aztreonam and vancomycin. ID has seen the patient. Insulin regimen has been started for better blood sugar control.. Continue with wound care. Smoking cessation was counseled extensively. Patient is being discharged home with IV antibiotics. Discharge physical examination Patient is lying in the bed comfortably, no acute distress, awake alert and oriented.. HEENT: Normocephalic. Neck is supple. Pupils reactive. Nostrils clear. Oral cavity is moist. Ears reveal no drainage. Neck reveals no JVD, carotid bruits, or thyromegaly. CHEST EXAMINATION: Trachea is central. Symmetrical expansion. Lung minor clear to auscultation and percussion. CARDIAC: Normal S1, S2 with no gallops. No murmurs ABDOMEN: Soft. Bowel sounds normal. No organomegaly. No abdominal bruits. Extremities: reveal no edema. No clubbing or cyanosis. right foot is bandaged surgically. Neurologically awake, alert, oriented x3 with well-coordinated movements. No focal deficits noted Skin: No rash or skin lesions. Psychiatric: Operative. Nonsuicidal Musculoskeletal: No joint swelling or deformity. Normal range of motion. Total time taken greater than 35 minutes including 18 minutes for counseling and coordination of care. Patient Condition at Discharge: Good Plan - Discharge Summary Discharge Rx Participant: Yes New Discharge Prescriptions: New Ertapenem [INVanz] 1 gm IVPB Q24H #28 bag Pantoprazole [Protonix] 40 mg PO DAILY #30 tablet. traMADol HCl [Ultram] 50 mg PO QID PRN #20 tab PRN Reason: Pain Insulin Aspart [NovoLOG (formulary)] 6 unit SQ AC-TID #1 vial Insulin Detemir [Levemir] 18 unit SQ HS #1 vial Discharge Medication List Ertapenem [INVanz] 1 gm IVPB Q24H #28 bag 02/26/17 [Rx] Insulin Aspart [NovoLOG (formulary)] 6 unit SQ AC-TID #1 vial 02/27/17 [Rx] Insulin Detemir [Levemir] 18 unit SQ HS #1 vial 02/27/17 [Rx] Pantoprazole [Protonix] 40 mg PO DAILY #30 tablet. 02/27/17 [Rx] traMADol HCl [Ultram] 50 mg PO QID PRN #20 tab 02/27/17 [Rx] Follow up Appointment(s)/Referral(s): [facility], [REFERRING] - As Needed Manuel Greer MD [STAFF PHYSICIAN] - 03/07/17 3:00 pm Lucas Wells MD [STAFF PHYSICIAN] - 03/02/17 10:45 am Jaye Tipton MD [STAFF PHYSICIAN] - 03/06/17 2:30 pm (at [place] location [address] [place] [id number]. ) [facility] Nurse, [NON-STAFF] - Ambulatory/Diagnostic Orders: Basic Metabolic Panel [LAB.AMB] Location: Determined By Patient C Reactive Protein [LAB.AMB] Location: Determined By Patient Complete Blood Count w/diff [LAB.AMB] Location: Determined By Patient Erythrocyte Sedimentation Rate [LAB.AMB] Location: Determined By Patient Patient Instructions/Handouts: Type 1 Diabetes in Adults (DC), Peripherally Inserted Central Catheters and Midline Catheters (DC), Wound Healing and Your Diet (DC) Activity/Diet/Wound Care/Special Instructions: Diabetic education Diet: consist. Carb accu cheks achs Discharge Disposition: HOME WITH HOME HEALTH SERVICES
--- NOTE | 2017-03-01 10:05 | IR ---
PICC LINE PLACEMENT: HISTORY: Infection requiring long-term antibiotic therapy PROCEDURE: Ultrasound and fluoroscopic guidance of PICC line placement. COMPLICATIONS: None ANESTHESIA: 1. 1% Lidocaine locally. FINDINGS/TECHNIQUE: The procedure was explained to the patient. The risks, complications, benefits and alternatives were discussed and any questions were answered. Informed consent was obtained. The patient was placed supine on the fluoroscopic table and prepped and draped in the usual sterile [facility] ion. Utilizing a 21 gauge needle and sonographic and fluoroscopic guidance, access in the vein was achieved and there is placement of a 0.018 guidewire. The vein is patent. A 4-F sheath was placed o tete the guidewire. The guidewire and dilator were removed and a 4-F. PICC line was placed through th e sheath with the tip at the level of the SVC. The sheath was removed, the catheter was flushed and sutured into position. The patient was stable throughout the procedure and remained stable upon disc harge from the Department of Radiology. The vein puncture was patent under ultrasound. A pastor scale image was obtained to document patency of the vein punctured. All elements of the maximal barrier technique were utilized. FLUOROSCOPY TIME: 0.3 minutes, one image submitted IMPRESSION: Successful PICC line placement under ultrasound and fluoroscopic guidance.
--- NOTE | 2017-04-13 11:11 | PN ---
PROGRESS NOTE DATE OF SERVICE: 02/26/2017 REASON FOR FOLLOW UP: Right big toe diabetic foot infection. INTERVAL HISTORY: The patient is afebrile, has been breathing comfortably. Denies any chest pain, shortness of breath or cough. No abdominal pain or any worsening pain in the right foot amputation site. EXAMINATION: Blood pressure 132/57 with a pulse of 102, temperature of 97.8. He is 99% on room air. General description is a middle-aged male lying in bed in no distress. RESPIRATORY SYSTEM: Unlabored breathing. Clear to auscultation anteriorly. HEART: S1, S2. Regular rate and rhythm. ABDOMEN: Soft, no tenderness. Right foot is currently dressed up. No obvious drainage on the dressing. RN will change the dressing as mentioned. No significant surrounding swelling or drainage. LABS: Hemoglobin is 10.5, white count 5.8 with a BUN of 8, creatinine 0.70. Blood culture has been negative. DIAGNOSTIC IMPRESSION AND PLAN: Patient with right big toe wet gangrene status post right big toe amputation. In view of extensive infection the patient will get a PICC line tomorrow and recommend Invanz 1 g daily for another 4 weeks with close outpatient followup. MMODL / IJN: [id number] /
== END 2017-02-27 18:31 | disposition home health service (06) | DRG 617 ==
LOC: 4MS4W 20:25
PROVIDERS: ADMIT Internal Medicine; ATTEND Internal Medicine
PROC: 02HV33Z Insertion of Infusion Device into Superior Vena Cava, Percutaneous Approach (ICD-10-PCS; principal; 2017-02-21)
PROC: 0Y6P0Z0 Detachment at Right 1st Toe, Complete, Open Approach (ICD-10-PCS; 2017-02-23)
DX: E11.65 Type 2 diabetes mellitus with hyperglycemia (principal); I96 Gangrene, not elsewhere classified; E11.621 Type 2 diabetes mellitus with foot ulcer; E11.52 Type 2 diabetes mellitus with diabetic peripheral angiopathy with gangrene; M86.9 Osteomyelitis, unspecified; L97.519 Non-pressure chronic ulcer of other part of right foot with unspecified severity; D64.9 Anemia, unspecified; E11.69 Type 2 diabetes mellitus with other specified complication; F17.200 Nicotine dependence, unspecified, uncomplicated; Z79.4 Long term (current) use of insulin; Z80.0 Family history of malignant neoplasm of digestive organs; Z88.0 Allergy status to penicillin
CPT/HCPCS: 36569; 71020; 76937; 77001; 80048; 80053; 80202; 83036; 83735; 85025; 85652; 86140; 87040; 87070; 87075; 87205; 88305; 88311; 93005

== ENCOUNTER 2017-08-30 13:30 | Inpatient (IN) | payer OTHER, MEDICARE ==
[2017-08-30] MEDS ORDERED: VANCOMYCIN IV PER PHARMACY 1 EACH MISC MISCELLANE PRN (14:19)
[2017-08-30] MEDS ORDERED: ACETAMINOPHEN TAB 500 MG TAB PO STA (14:21)
--- NOTE | 2017-08-30 14:25 | ED ---
General Adult HPI - General Chief complaint: Extremity Injury, Lower Stated complaint: Toe pain Time Seen by Provider: 08/30/17 13:40 Source: patient, RN notes reviewed Mode of arrival: ambulatory Limitations: no limitations - History of Present Illness Initial comments: This a 57-year-old male who has a past medical history significant for diabetes and amputation of his right first toe. Patient states the right second toe is now red and the skin around the tip is all white. Patient went to see Dr. Wells to the Dr. Wells told him to go to the emergency department and be admitted for probable amputation of the toe and started on IV antibiotics. Patient denies any fever or chills. Patient denies any injury. Patient just noted that it started to look red and inflamed 2 days ago and so he came to see Dr. Wells today. - Related Data Home Medications Medication Instructions Recorded Confirmed Aspirin 81 mg PO DAILY 08/30/17 08/30/17 metFORMIN HCL [Glucophage] 500 mg PO AC-BID 08/30/17 08/30/17 Previous Rx's Medication Instructions Recorded Insulin Aspart [NovoLOG 6 unit SQ AC-TID #1 vial 02/27/17 (formulary)] Insulin Detemir [Levemir] 18 unit SQ HS #1 vial 02/27/17 Allergies Allergy/AdvReac Type Severity Reaction Status Date / Time Penicillins Allergy Rash/Hives Verified 08/30/17 14:13 Review of Systems ROS Statement: Those systems with pertinent positive or pertinent negative responses have been documented in the HPI. ROS Other: All systems not noted in ROS Statement are negative. Past Medical History Past Medical History: Diabetes Mellitus History of Any Multi-Drug Resistant Organisms: None Reported Past Surgical History: Orthopedic Surgery Additional Past Surgical History / Comment(s): rt great toe amputation 03/03 Additional Past Anesthesia/Blood Transfusion Reaction / Comment(s): Never received blood or ansthesia Past Psychological History: No Psychological Hx Reported Smoking Status: Former smoker Past Alcohol Use History: None Reported Past Drug Use History: None Reported - Past Family History Mother Additional Family Medical History / Comment(s): Mother of pancreatic cancer Father Additional Family Medical History / Comment(s): Father had CABG General Exam - General Exam Comments Initial Comments: GENERAL: Patient is well-developed and well-nourished. Patient is nontoxic and well- hydrated and is in mild distress. ENT: Neck is soft and supple. No significant lymphadenopathy is noted. Oropharynx is clear. Moist mucous membranes. Neck has full range of motion without eliciting any pain. EYES: The sclera were anicteric and conjunctiva were pink and moist. Extraocular movements were intact and pupils were equal round and reactive to light. Eyelids were unremarkable. PULMONARY: Unlabored respirations. Good breath sounds bilaterally. No audible rales rhonchi or wheezing was noted. CARDIOVASCULAR: There is a regular rate and rhythm without any murmurs gallops or rubs. ABDOMEN: Soft and nontender with normal bowel sounds. SKIN: Skin is clear with no lesions or rashes and otherwise unremarkable. NEUROLOGIC: Patient is alert and oriented x3. Cranial nerves II through XII are grossly intact. Motor and sensory are also intact. Normal speech, volume and content. Symmetrical smile. MUSCULOSKELETAL: Right second toe is erythematous the distal third is pale and there is capillary refill LYMPHATICS: No significant lymphadenopathy is noted PSYCHIATRIC: Normal psychiatric evaluation. Limitations: no limitations Course Vital Signs 08/30/17 13:42 Temperature 100.1 F H Pulse Rate 108 H Respiratory 20 Rate Blood Pressure 109/65 O2 Sat by Pulse 99 Oximetry Medical Decision Making - Medical Decision Making X-ray of the foot shows no fracture but possibly osteomyelitis. I spoke with Dr. Taylor he wanted the patient admitted. I started the patient on vancomycin. I spoke with Dr. New she agreed to admit the patient admitted the patient and wrote admitting orders and continue the vancomycin. - Lab Data Result diagrams: 08/30/17 15:12 08/30/17 15:12 Lab Results 08/30/17 08/30/17 Range/Units 15:12 15:12 WBC 6.9 (3.8-10.6) k/uL RBC 4.26 L (4.30-5.90) m/uL Hgb 12.1 L (13.0-17.5) gm/dL Hct 36.7 L (39.0-53.0) % MCV 86.2 (80.0-100.0) fL MCH 28.4 (25.0-35.0) pg MCHC 33.0 (31.0-37.0) g/dL RDW 13.1 (11.5-15.5) % Plt Count 213 (150-450) k/uL Neutrophils % 69 % Lymphocytes % 17 % Monocytes % 10 % Eosinophils % 1 % Basophils % 0 % Neutrophils # 4.8 (1.3-7.7) k/uL Lymphocytes # 1.2 (1.0-4.8) k/uL Monocytes # 0.7 (0-1.0) k/uL Eosinophils # 0.1 (0-0.7) k/uL Basophils # 0.0 (0-0.2) k/uL Sodium 141 (137-145) mmol/L Potassium 4.4 (3.5-5.1) mmol/L Chloride 101 (98-107) mmol/L Carbon Dioxide 27 (22-30) mmol/L Anion Gap 13 mmol/L BUN 17 (9-20) mg/dL Creatinine 0.70 (0.66-1.25) mg/dL Est GFR (CKD-EPI)AfAm >90 (>60 ml/min/1.73 sqM) Est GFR (CKD-EPI)NonAf >90 (>60 ml/min/1.73 sqM) Glucose 155 H (74-99) mg/dL Calcium 9.4 (8.4-10.2) mg/dL Total Bilirubin 0.5 (0.2-1.3) mg/dL AST 30 (17-59) U/L ALT 39 (21-72) U/L Alkaline Phosphatase 135 H (38-126) U/L Total Protein 7.1 (6.3-8.2) g/dL Albumin 3.6 (3.5-5.0) g/dL Disposition Clinical Impression: Gangrene of toe of right foot Disposition: ADMITTED IP TO THIS HOSP Referrals: Manuel Greer MD [Primary Care Provider] - 1-2 days Time of Disposition: 15:55
[2017-08-30] MEDS ORDERED: VANCOMYCIN 1,750 MG in SODIUM CHLORIDE 0.9% 250 ML IVPB ONE (15:00)
--- NOTE | 2017-08-30 15:16 | XR ---
EXAMINATION TYPE: XR toes RT DATE OF EXAM: 08/30/2017 COMPARISON: NONE HISTORY: 57-year-old male with swelling, redness, nonhealing wound second toe right foot, pain. TECHNIQUE: 3 views coned down right second toe. FINDINGS: There is soft tissue swelling and associated wound to the distal second toe. There is suspicious bony demineralization of the tuftal cortex. Prior first toe amputation at the level of the distal metatar cliff shaft. IMPRESSION: Soft tissue swelling and ulcer along the distal second toe. There is suspicious underlying deminerali zation of the distal phalangeal tuft cortex suggestive of early osteomyelitis. Prior great toe amputation.
[2017-08-30 15:24] LABS: Basophils % (A) 0 %; Eosinophils # (A) 0.1 k/uL (0-0.7); Eosinophils % (A) 1 %; HCT 36.7 % (39.0-53.0); HGB 12.1 gm/dL (13.0-17.5); Lymphocytes # (A) 1.2 k/uL (1.0-4.8); Lymphocytes % (A) 17 %; MCH 28.4 pg (25.0-35.0); MCV 86.2 fL (80.0-100.0); Mean Platelet Volume 7.5; Monocytes # (A) 0.7 k/uL (0-1.0); Monocytes % (A) 10 %; Neutrophils # (A) 4.8 k/uL (1.3-7.7); Neutrophils % (A) 69 %; Platelet Count 213 k/uL (150-450); RBC 4.26 m/uL (4.30-5.90); RDW 13.1 % (11.5-15.5); WBC 6.9 k/uL (3.8-10.6)
[2017-08-30 15:32] LABS: ALT 39 U/L (21-72); AST 30 U/L (17-59); Albumin 3.6 g/dL (3.5-5.0); Alkaline Phosphatase 135 U/L (38-126); Anion Gap 13 mmol/L; Blood Urea Nitrogen 17 mg/dL (9-20); Calcium 9.4 mg/dL (8.4-10.2); Carbon Dioxide 27 mmol/L (22-30); Chloride 101 mmol/L (98-107); Glucose 155 mg/dL (74-99); Potassium 4.4 mmol/L (3.5-5.1); Sodium 141 mmol/L (137-145); Total Bilirubin 0.5 mg/dL (0.2-1.3); Total Protein 7.1 g/dL (6.3-8.2)
--- NOTE | 2017-08-30 15:32 | CONS ---
DATE OF CONSULTATION: 08/30/2017 Mr. Jackson came to the office today with history of right foot, second toe wet gangrene. Patient had this for the past 2 weeks and patient is known to me from the past. He had a right big toe amputation in the past. PAST MEDICAL HISTORY: History of diabetes. SURGICAL HISTORY: Patient had a right foot, big toe amputation done dated 02/23/2017. PHYSICAL EXAMINATION: NECK: Supple, trachea central. CHEST: Clear to auscultation. ABDOMEN: Soft. Femoral pulses are present, dorsal pedis is present. Patient has a left foot, second toe wet gangrene. PLAN: IV antibiotic and the patient will need a second toe amputation if it does not improve. MMODL / IJN: [id number] / MTDD
[2017-08-30] MEDS ORDERED: SODIUM CHLORIDE 0.9% 1,000 ML IV ONE (16:01)
[2017-08-30 20:50] LABS: Glucose,Whole Blood 94 mg/dL (75-99)
[2017-08-30] MEDS ORDERED: INSULIN DETEMIR 100 UNIT/ML 10 ML VIAL SQ SCH (21:00)
[2017-08-30] MEDS: INSULIN ASPART 100 UNIT/ML 1 ML 10 ML VIAL SQ SCH (21:26)
[2017-08-31 00:05] LABS: Glucose,Whole Blood 135 mg/dL (75-99)
[2017-08-31] MEDS: VANCOMYCIN 1,500 MG in SODIUM CHLORIDE 0.9% 250 ML IVPB SCH ×4 (00:07→22:55)
[2017-08-31 07:08] LABS: Glucose,Whole Blood 103 mg/dL (75-99)
[2017-08-31] MEDS ORDERED: INSULIN ASPART 100 UNIT/ML 1 ML 10 ML VIAL SQ SCH (07:30)
--- NOTE | 2017-08-31 08:33 | HP ---
HISTORY AND PHYSICAL CHIEF COMPLAINT: Painful second toe. This is a 57-year-old male with past history of significant diabetes and previous amputation of the right first toe, presented with right second toe redness and skin around the tip is . He was seen by Dr. Wells and told in the emergency room he will be admitted for probable amputation of toe, started on IV antibiotics. The patient denies any fever or chills, and denies any injury. He states the toe has been in good shape up until just recently and at this time he is having problems with it. He has short-term history of insulin-dependent diabetes mellitus. ALLERGIES: His allergies are to PENICILLIN. MEDICATIONS: Medications include: 1. Aspirin 81. 2. Metformin 500 b.i.d. 3. Insulin, NovoLog 6 units a.c. 3 times a day plus scale. 4. Levemir 18 units at bedtime. SURGERIES: His surgeries include his amputation of right great toe on 02/2017, which was his only surgery. He has no history of hypertension. He has no history of hyperlipidemia. 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 He is a former cigarette smoker of greater than a pack a day. Does not use alcohol. No drug use. FAMILY HISTORY: He had a mother who of pancreatic cancer and a father who had a CABG. He is , lives with his . They have no children. REVIEW OF SYSTEMS: Just basically some discomfort of the toe. EYES: He has no problem seeing. ENT: He has had a dry mouth. PULMONARY: He is having no cough, no shortness of breath. CARDIAC: He has no gallops. No palpitations. No chest pain. ABDOMEN: He has had no hematemesis, no melena, no hematochezia, no constipation, no diarrhea. SKIN: No rashes. URINARY: He is having no problems with urination. PSYCHIATRIC: He has no problems with depression or anxiety. LABS: Lab work today, WBC is 6.9. His hemoglobin is 12.1. Chem 17 is within normal limits except for an elevation of sugar at 155 and well noted that his creatinine is at 0.7. PHYSICAL EXAMINATION: VITAL SIGNS: Temperature is 100.1, pulse rate is 108, respiratory is 20, blood pressure is 109/65. EYES: Pupils are equal, round, reactive to light and accommodation. ENT show tympanic membranes and pharynx negative. NECK: Supple with midline trachea. CHEST: Essentially clear to auscultation. HEART: Sinus rhythm with no murmur. ABDOMEN: Soft, nontender with no organomegaly. No unusual urinary genital abnormalities. LOWER EXTREMITIES: Amputation of the right big toe with very erythematous pallor appearing second toe. PSYCHIATRIC: No depression. No anxiety. SKIN: He has no unusual rashes. ENDOCRINE: His neck is supple. No palpable thyroid. No orthopnea. ALLERGY: Does have some rhinorrhea. ASSESSMENT: 1. Severe cellulitis, questionable early gangrenous changes of his toe. 2. History of type 2 diabetes. 3. Previous history of cigarette smoker. PLAN: X-ray of the right toe does not show any evidence of osteomyelitis at this time. The patient is placed on vancomycin. I did talk with emergency room doctor, Dr. Terrell, and I did talk with Dr. Wells. We will put him on vancomycin, comfort care and will follow him accordingly. MMODL / IJN: [id number] /
[2017-08-31] MEDS: INSULIN ASPART 100 UNIT/ML 1 ML 10 ML VIAL SQ SCH ×4 (08:35→21:44)
[2017-08-31] MEDS: metFORMIN 500 MG TAB PO SCH ×2 (08:39→17:28)
[2017-08-31 11:54] LABS: Glucose,Whole Blood 67 mg/dL (75-99)
[2017-08-31 11:54] LABS: Glucose,Whole Blood 69 mg/dL (75-99)
[2017-08-31 12:00] LABS: Glucose,Whole Blood 70 mg/dL (75-99)
--- NOTE | 2017-08-31 12:59 | XR ---
EXAMINATION TYPE: XR chest 2V DATE OF EXAM: 08/31/2017 COMPARISON: Chest x-ray February 22, 2017. HISTORY: Presurgical study. TECHNIQUE: Frontal and lateral views of the chest are obtained. FINDINGS: There is no focal air space opacity, pleural effusion, or pneumothorax seen. The cardiac silhouette size is within normal limits. The osseous structures are intact. IMPRESSION: No acute cardiopulmonary process. No significant change from prior.
[2017-08-31 18:10] LABS: Glucose,Whole Blood 90 mg/dL (75-99)
[2017-08-31 20:40] LABS: Glucose,Whole Blood 101 mg/dL (75-99)
--- NOTE | 2017-08-31 21:42 | CONS ---
CONSULTATION DATE OF SERVICE: 08/31/2017. REASON FOR CONSULTATION: Right 2nd toe gangrene. HISTORY OF PRESENT ILLNESS: The patient is a 57-year-old male who was recently admitted at [facility] back in March 2017 with right big toe gangrene status post amputation of the big toe. The patient said he was doing well. However, on Monday, that is 3 days prior to presentation to hospital, he noticed to have redness of his right 2nd toe. The patient did not recall if there is any history of any injury. The patient said he was using some antibiotic cream and wrapping it. However, it was becoming more swollen and red and becoming discolored. The patient did have underlying neuropathy and hence did not have any significant sensation in the toe. The patient denies any high-grade fever. With these symptoms, the patient did went to see Dr. Wells who sent the patient to the ER for admission and IV antibiotic therapy, possible amputation. The patient was evaluated by the ER physician. He did have x-rays of the toe, which did show soft tissue swelling ulcer along the distal 2nd toe. Suspicion of underlying demineralization of the distal phalanges plantar tuft cortex suggestive of early osteomyelitis. The patient was admitted to the hospital, started on antibiotic. Infectious Disease was consulted for further recommendation regarding antibiotic therapy. The patient did have a low-grade fever of 100.1 on admission, though he is currently afebrile. His white count was normal at 6.9 on admission. REVIEW OF SYSTEMS: Constitutional: Positive for weakness, some chills but denies any high-grade fever. Eyes no complaint. ENT no complaint. Respiratory no complaint. Cardiovascular no complaint. Genitourinary no complaint. GASTROINTESTINAL: No complaint. Musculoskeletal as per HPI. Integumentary as per HPI. Psychological no complaint. Endocrine no complaint. Neurological no complaint. MEDICAL HISTORY: Significant for diabetes mellitus, right diabetic foot infection with gangrene of the right big toe and foot. PAST SURGICAL HISTORY: Right big toe amputation February 2017. SOCIAL HISTORY: Remote history of smoking. No drinking or drug use. FAMILY HISTORY: Mother of pancreatic cancer. Father history of coronary disease. ALLERGIES: TO PENICILLIN. MEDICATIONS: Include the patient is currently on vancomycin 150 mg q.8 hours, Glucophage, and NovoLog. EXAMINATION: Blood pressure 129/84 with a pulse of 105, temperature of 98. He is 99% on room air. General description is a middle-aged male lying in bed in no distress. No tachypnea or accessory muscles of respiration use. HEENT examination: No pallor or scleral icterus. Oral mucosa membranes are moist with no pharyngeal erythema or thrush. Neck trachea central. No thyromegaly. Lungs unlabored breathing. Clear to auscultation anteriorly. No wheeze or crackles. Heart S1, S2. Regular rate and rhythm. Abdomen soft. No tenderness. No guarding. No rigidity. No organomegaly. EXTREMITIES: No edema of feet. Examination of the right foot 2nd toe swollen red with discoloration. No foul smelling drainage. Neurological: Patient is awake, alert, oriented times three. Mood and affect normal. LABS: BUN of 17, creatinine 0.70. Electrolytes have been normal. Liver enzymes are normal. Hemoglobin is 12.1, white count 6.9. Wound culture obtained last night showing gram- positive cocci in clusters. DIAGNOSTIC IMPRESSION AND PLAN: 1. Patient with right diabetic foot infection. 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 Wound culture with gram-positive in clusters, more likely a streptococcal infection with question of MSSA versus MRSA. 2. Patient with a PENICILLIN ALLERGY that will limit the number of antibiotics that could be safely used. PLAN: 1. Vancomycin pharmacy to dose target trough of 15 while watching his kidney function closely. 2. Await possible amputation of the right 2nd toe that will help in healing of this infection. 3. Depending upon his clinical response as well as cultures, further adjust medication further if needed. Thank you for this consultation. Will follow this patient along with you. MMODL / IJN: [id number] /
[2017-09-01] MEDS ORDERED: VANCOMYCIN TROUGH DUE 1 EACH MISC MISCELLANE ONE (07:00)
[2017-09-01 07:23] LABS: Glucose,Whole Blood 128 mg/dL (75-99)
[2017-09-01 07:46] LABS: Anion Gap 6 mmol/L; Blood Urea Nitrogen 11 mg/dL (9-20); Calcium 8.9 mg/dL (8.4-10.2); Carbon Dioxide 31 mmol/L (22-30); Chloride 103 mmol/L (98-107); Glucose 135 mg/dL (74-99); Potassium 4.2 mmol/L (3.5-5.1); Sodium 140 mmol/L (137-145)
[2017-09-01] MEDS: INSULIN ASPART 100 UNIT/ML 1 ML 10 ML VIAL SQ SCH ×4 (08:59→21:01)
[2017-09-01] MEDS: metFORMIN 500 MG TAB PO SCH ×2 (09:01→16:49)
[2017-09-01] MEDS: VANCOMYCIN 1,500 MG in SODIUM CHLORIDE 0.9% 250 ML IVPB SCH ×3 (09:02→23:58)
[2017-09-01] MEDS: LACTATED RINGERS 1,000 ML IV SCH (09:06)
[2017-09-01] MEDS ORDERED: IV FLUID CONTINUATION 1,000 ML IV ONE (10:31)
[2017-09-01 11:05] LABS: Glucose,Whole Blood 102 mg/dL (75-99)
--- NOTE | 2017-09-01 11:09 | PN ---
PROGRESS NOTE A 57-year-old white male with significant diabetes and previous amputation right big toe presents with second toe redness and appears to be gangrenous at the end was seen by Dr. Wells, placed in the hospital accordingly via through the emergency room under my care with his consult for amputation. At this period of time, his blood sugars have been up and down. We decreased his Novolin and we just got him on insulin to scale. At this time, his allergies are PENICILLIN. He is on aspirin 81, metformin 500 twice a day, just on insulin to scale a.c. meals and bedtime. Previous surgeries, he had amputation right great toe. He has a history of hypertension, hyperlipidemia. I reviewed his EKG and chest x-ray today to be within normal limits. His lab shows 140 sodium, a 4.2 potassium. He is on vancomycin and we have no change in his hematology. REVIEW OF SYSTEMS: His review of systems shows: EYES: To be within normal limits. ENT: Shows a dry mouth. NECK: Is no problems swallowing. CHEST: No shortness of breath. No cough. HEART: He says he has had no palpitations and no true chest pain. ABDOMEN: He has no hematemesis, melena or hematochezia. No diarrhea. No constipation, but he says he has not ate or drank anything today because he is going for surgery. URINARY: He has had urination without pain. LOWER EXTREMITIES: He has no pain in his hands or arms. He says he just has some redness in that second toe and some black changes, is now wrapped up. PHYSICAL EXAMINATION: He is an alert, white male. Blood pressure 106/54, heart rate is 100, temperature 97.5, respiratory rate is 16. EYES: Pupils are equal, round, react to light and accommodation. ENT showed tympanic membranes and pharynx to be negative. NECK: Supple with midline trachea. CHEST: Essentially clear to auscultation. HEART: Sinus rhythm with no murmur. ABDOMEN: Soft, nontender with no organomegaly. SKIN: He has got some bruising on his hands and his arms. LOWER EXTREMITIES: Decreased pulses bilaterally. Lower extremity right big toe was amputated and he has got a very erythematous pallor second toe. PSYCHIATRIC: No depression. No anxiety. ENDOCRINE: He has no history of hypothyroid disease. No masses. ALLERGIES: Does have rhinorrhea. ASSESSMENT: 1. Severe cellulitis and ischemic changes related with gangrenous changes of the right second toe. 2. Diabetes type 2 with insulin support. 3. Previous history of cigarette smoking. He is on vancomycin. Going for surgery today for amputation. EKG, chest x-ray, labs stable. MMODL / IJN: [id number] /
[2017-09-01] MEDS ORDERED: LIDOCAINE 1% INJ 10MG/ML (20 ML MDV) ONE (12:03)
[2017-09-01] MEDS ORDERED: PROPOFOL 10 MG/ML 20 ML VIAL IV ONE (12:03)
[2017-09-01] MEDS ORDERED: MIDAZOLAM 2 MG/2 ML VIAL ONE (12:03)
[2017-09-01] MEDS ORDERED: fentaNYL (PF) 50 MCG/ML 2 ML AMP ONE (12:03)
[2017-09-01] MEDS ORDERED: LIDOCAINE 1% (PF) 10 MG/ML (30 ML SDV) SQ ONE (12:23)
[2017-09-01] MEDS ORDERED: MEPERIDINE 50 MG/ML SYRINGE IVP ONE (13:09)
[2017-09-01 13:15] LABS: Glucose,Whole Blood 130 mg/dL (75-99)
--- NOTE | 2017-09-01 13:43 | OP ---
OPERATIVE REPORT SURGEON: Lucas Wells MD PREOPERATIVE DIAGNOSIS: Infected gangrene right foot second toe. POSTOPERATIVE DIAGNOSIS: OPERATION: Amputation of the right foot second toe. ANESTHESIA: Digit block with IV sedation. This patient has history of diabetes and he had a left big toe amputation done in the past. He came in with infected right foot second toe. We put him on antibiotic. The patient was on IV antibiotic for 2 days. He has redness and discharge noted of the second toe. DESCRIPTION OF PROCEDURE: The patient was brought to the operating room. The foot was prepped and draped in usual sterile manner. Incision was made on the dorsal aspect of the foot, it went circumferentially around the base of the second toe, deepened through skin, fat and fascia and tendons were divided on the proximal and distal aspect until we reached the proximal phalanx. Using bone cutter, we divided the proximal phalanx of the second toe and at this point, we __have___ we removed the proximal phalanx which was removed and the specimen was removed. There was some bleeding points which were electrocoagulated and the wound was copiously irrigated with hydrogen peroxide and saline. Hemostasis was well controlled and the head of the second metatarsal covered by the proximal fascia with interrupted suture. Then we used the 4-0 Prolene to close the subcutaneous with interrupted suture and the skin was approximated with 4-0 nylon with mattress interrupted suture. Dressing applied and the patient tolerated the procedure well and transferred to the recovery room in satisfactory condition. JERICA / KONSTANTINN: [id number] / MAGDA
[2017-09-01 14:40] VITALS: BMI 28.2
[2017-09-01 17:09] LABS: Glucose,Whole Blood 88 mg/dL (75-99)
--- NOTE | 2017-09-01 19:55 | PN ---
PROGRESS NOTE DATE OF SERVICE: 09/01/2017 REASON FOR FOLLOWUP: Right diabetic foot infection, Doty grade 4, with gangrene of the right second toe. INTERVAL HISTORY: The patient is afebrile. The patient is status post amputation of right second toe by Dr. Wells. Patient tolerated the procedure. Patient currently denies having any chest pain, shortness of breath or cough. No abdominal pain. Pain is currently controlled. PHYSICAL EXAMINATION: Blood pressure 141/78 with a pulse of 98, temperature 96.7. He is 97% on room air. General description is a middle-aged male lying in bed in no distress. RESPIRATORY SYSTEM: Unlabored breathing. Clear to auscultation anteriorly. HEART: S1, S2. Regular rate and rhythm. ABDOMEN: Soft. No tenderness. Right foot is currently dressed up dressing. No drainage on the dressing. LABS: BUN of 11, creatinine 0.66. Vancomycin level is 16, therapeutic. Wound culture with presumptive Staph aureus. Blood cultures have been negative. DIAGNOSTIC IMPRESSION AND PLAN: Patient with right diabetic foot infection, Doty grade 4, with gangrene of his second toe, status post amputation. Will keep the patient on vancomycin, Pharmacy to dose, watching his kidney function closely. Will watch his culture to determine his discharge antibiotics. His is present at bedside. Their questions were answered. MMODL / IJN: [id number] /
[2017-09-01 20:44] LABS: Glucose,Whole Blood 124 mg/dL (75-99)
[2017-09-02 07:10] LABS: Glucose,Whole Blood 98 mg/dL (75-99)
[2017-09-02] MEDS: INSULIN ASPART 100 UNIT/ML 1 ML 10 ML VIAL SQ SCH ×4 (07:25→21:53)
[2017-09-02] MEDS ORDERED: PANTOPRAZOLE SODIUM 40 MG GRANULE PKT PO SCH (07:30)
[2017-09-02] MEDS: LACTATED RINGERS 1,000 ML IV SCH (07:48)
[2017-09-02] MEDS: VANCOMYCIN 1,500 MG in SODIUM CHLORIDE 0.9% 250 ML IVPB SCH ×3 (07:48→23:11)
[2017-09-02] MEDS: metFORMIN 500 MG TAB PO SCH ×2 (07:48→17:20)
[2017-09-02 08:28] LABS: Anion Gap 10 mmol/L; Blood Urea Nitrogen 9 mg/dL (9-20); Calcium 9.2 mg/dL (8.4-10.2); Carbon Dioxide 32 mmol/L (22-30); Chloride 100 mmol/L (98-107); Glucose 104 mg/dL (74-99); Potassium 4.1 mmol/L (3.5-5.1); Sodium 142 mmol/L (137-145)
[2017-09-02] MEDS: HEPARIN SODIUM,PORCINE 5,000 UNIT/ML 1 ML VIAL SQ SCH ×2 (09:24→21:54)
--- NOTE | 2017-09-02 10:46 | P.PN ---
Progress Note - Text 57 white male, history of diabetes, patient came with right foot second toe infected gangrene we did the right foot second toe amputation. Today we have changed the dressing incision is healing good patient is an IV antibiotic to be continued for the weekend recommended nonweightbearing to the right foot we will change her dressing on Monday
--- NOTE | 2017-09-02 11:31 | PN ---
PROGRESS NOTE The patient is post amputation of the right second toe with Dr. Wells yesterday. He is doing well. Having minimal amount of pain. No shortness of breath. No chest pain. No orthopnea. He has no blood work back today, but he has been on insulin to scale and his blood sugars have been running between . REVIEW OF SYSTEMS: At this point, review of systems within normal limits all the way across the board. PHYSICAL EXAMINATION: His vital signs show a blood pressure of 122/77, heart rate is in the 90s, respiratory rate is 16, temperature is 97. EYES: Pupils are equal, round, react to light and accommodation. ENT showed tympanic membranes and pharynx to be negative. Neck is supple with midline trachea. Chest is essentially clear to auscultation. HEART: Sinus rhythm with no murmur. ABDOMEN: Soft, nontender with no organomegaly. He has negative Homans bilaterally. He has no discomfort in his toe, that foot is wrapped up I did not unwrap it today. There is no evidence of surrounding cellulitis. ASSESSMENT: 1. Amputation of the second right toe due to infection and gangrene. 2. Diabetes type 2 with insulin support. 3. Previous history of cigarette smoking. Continue vancomycin. Continue to watch cultures. He is doing well. I added Protonix and subcutaneous heparin for prevention of GI and also DVT. Prognosis good. Please refer to my orders. MMODL / IJN: [id number] /
[2017-09-02 11:47] LABS: Glucose,Whole Blood 155 mg/dL (75-99)
[2017-09-02 17:10] LABS: Glucose,Whole Blood 134 mg/dL (75-99)
[2017-09-02 21:05] LABS: Glucose,Whole Blood 122 mg/dL (75-99)
[2017-09-03 07:16] LABS: Glucose,Whole Blood 166 mg/dL (75-99)
[2017-09-03] MEDS: PANTOPRAZOLE 40 MG TABLET PO SCH (07:49)
[2017-09-03] MEDS: VANCOMYCIN 1,500 MG in SODIUM CHLORIDE 0.9% 250 ML IVPB SCH ×2 (07:49→16:54)
[2017-09-03] MEDS: INSULIN ASPART 100 UNIT/ML 1 ML 10 ML VIAL SQ SCH ×4 (07:49→22:29)
[2017-09-03] MEDS: HEPARIN SODIUM,PORCINE 5,000 UNIT/ML 1 ML VIAL SQ SCH ×2 (07:50→21:42)
[2017-09-03] MEDS: metFORMIN 500 MG TAB PO SCH ×2 (07:50→16:54)
[2017-09-03 12:12] LABS: Glucose,Whole Blood 121 mg/dL (75-99)
[2017-09-03 12:33] LABS: Anion Gap 11 mmol/L; Blood Urea Nitrogen 13 mg/dL (9-20); Calcium 9.1 mg/dL (8.4-10.2); Carbon Dioxide 32 mmol/L (22-30); Chloride 100 mmol/L (98-107); Glucose 118 mg/dL (74-99); Potassium 4.6 mmol/L (3.5-5.1); Sodium 143 mmol/L (137-145)
[2017-09-03] MEDS: LACTATED RINGERS 1,000 ML IV SCH (16:54)
[2017-09-03 17:07] LABS: Glucose,Whole Blood 152 mg/dL (75-99)
--- NOTE | 2017-09-03 18:44 | PN ---
PROGRESS NOTE Clemente Jackson is doing well with no complaints. Has minimal to no foot pain at this time. 57-year-old white male who came in to see Dr. Wells in his office. It was apparent to him that he had early gangrene changes in his right 2nd toe, was placed in the hospital accordingly. Started on IV antibiotics, vancomycin, consulted, then consulted Dr. Tipton Infectious Disease and he agreed at which time Dr. Wells took him 2 days later and amputated the right 2nd toe. This is 2 days postoperatively. He is doing fine. His blood sugars have been good. He feels good. He has minimal amount of pain. At this point he is having no weightbearing upon the forefoot of the foot. REVIEW OF SYSTEMS: Eyes: He is seeing well. ENT has a dry mouth but hears well. Neck no problems. Chest/respiratory: No cough, no shortness of breath. CARDIAC: No orthopnea or proximal nocturnal dyspnea, palpitations or chest pain. GI no hematemesis, melena or hematochezia. : He is urinating fine. No problems with genitalia. Integumentary is negative. PHYSICAL EXAMINATION: Blood pressure 138/80, heart rate is in the 70s, temperature is 97.4, respiratory rate 16. Eyes pupils are equal, round, react to light and accommodation. ENT showed tympanic membranes and pharynx to be negative. NECK: Supple. Midline trachea. Chest is essentially clear to auscultation. Heart sinus rhythm with no murmur. ABDOMEN: Soft, nontender with no organomegaly with negative Homans. Lower extremities negative Homans sign bilaterally. No swelling. His right foot is wrapped. There is no evidence of cellulitis. He has got poor to fair palpable posterior tibialis pulses. PSYCHIATRIC: He is not anxious. He is not nervous. He would like to get out of this hospital tomorrow. LAB: Basic metabolic profile is within normal limits. ASSESSMENT: 1. Amputation of the 2nd right toe due to infection and gangrene. 2. Type 2 diabetes with insulin support. 3. History of long-term cigarette smoking. 4. Vancomycin to continue watch cultures. He is doing well on Protonix and has GI prophylaxis and DVT prophylaxis with heparin subcutaneous. We are in the process of setting him up for 2 weeks outpatient IV antibiotics. Prognosis is guarded at this time. MMODL / IJN: [id number] /
[2017-09-03] MEDS: ceFAZolin IN SWFI 2 GM/20 ML SYRINGE IVP SCH (20:12)
[2017-09-03 20:53] LABS: Glucose,Whole Blood 130 mg/dL (75-99)
--- NOTE | 2017-09-03 22:44 | PN ---
PROGRESS NOTE DATE OF SERVICE: 09/03/2017. REASON FOR FOLLOWUP: Right diabetic foot infection, Doty grade 4, with gangrene of the second toe. INTERVAL HISTORY: The patient is afebrile. He has been breathing comfortably. Denies having any chest pain or cough. No abdominal pain or any pain in the right foot area. EXAMINATION: Blood pressure 137/77 with a pulse of 91, temperature 97.6. He is 98% on room air. General description is a middle-aged male lying in bed in no distress. RESPIRATORY SYSTEM: Unlabored breathing, clear to auscultation anteriorly. HEART: S1, S2. Regular rate and rhythm. ABDOMEN: Soft, nontender. Right foot is currently dressed up. No obvious drainage on the dressing. Wound culture finalized with MSSA. DIAGNOSTIC IMPRESSION/PLAN: Patient with right diabetic foot ulcer with a right 2nd toe gangrene, status post amputation of the second toe tomorrow . The patient did have history of PENICILLIN allergy with anaphylaxis. Antibiotic will be adjusted to cefazolin 2 g q.8h and discontinue vancomycin. MMODL / IJN: [id number] /
[2017-09-04] MEDS: ceFAZolin IN SWFI 2 GM/20 ML SYRINGE IVP SCH ×2 (00:02→08:05)
[2017-09-04 06:27] VITALS: BP 129/76; PULSE 84; RESP 16; TEMP 99.7
[2017-09-04] MEDS ORDERED: VANCOMYCIN TROUGH DUE 1 EACH MISC MISCELLANE ONE (07:00)
[2017-09-04 07:11] LABS: Glucose,Whole Blood 145 mg/dL (75-99)
[2017-09-04] MEDS: HEPARIN SODIUM,PORCINE 5,000 UNIT/ML 1 ML VIAL SQ SCH (08:04)
[2017-09-04] MEDS: PANTOPRAZOLE 40 MG TABLET PO SCH (08:04)
[2017-09-04] MEDS: metFORMIN 500 MG TAB PO SCH (08:04)
[2017-09-04] MEDS: INSULIN ASPART 100 UNIT/ML 1 ML 10 ML VIAL SQ SCH ×2 (08:04→12:31)
[2017-09-04] MEDS: LACTATED RINGERS 1,000 ML IV SCH (11:58)
--- NOTE | 2017-09-04 12:05 | P.DS ---
Providers Date of admission: 08/30/17 16:01 Expected date of discharge: 09/04/17 Attending physician: Manuel Greer Consults: 08/30/17 16:01 Consult Physician Urgent Consulting Provider: Lucas Wells Consult Reason/Comments: Gangrenous toe Do you want consulting provider notified?: Yes 08/30/17 16:13 Consult Physician Urgent Consulting Provider: Jaye Tipton Consult Reason/Comments: Gangrenous toe Do you want consulting provider notified?: Yes Primary care physician: Manuel Greer Hospital Course: 57-year-old male who was evaluated at Dr. Wells's office. It was apparent to Dr. Wells that the patient had early gangrene changes in his right second toe and he was placed in the hospital accordingly. The patient was started on IV antibiotics in the form of vancomycin and infectious disease was consulted. The patient underwent amputation of his second right toe on 09/01. Dressing changes have been completed by vascular. He is to remain nonweightbearing to right foot. Blood sugars have been controlled in the hospital. Per Dr. Greer, patient is to discontinue his levemir at HS and just continue with his Novolog TID with meals at this time. He was deemed stable for discharge per Dr. Greer. He was prescribed Keflex 500mg PO Q6 hours (40 capsules) per Dr. Tipton at the time of discharge DISCHARGE DIAGNOSIS: Gangrene of right second toe, status post amputation History of right big toe amputation, February 2017 Diabetes mellitus, type II, utilizing insulin History of long-term cigarette smoking Nurse practitioner note has been reviewed by physician. Signing provider agrees with the documented findings, assessment, and plan of care. Plan - Discharge Summary Discharge Rx Participant: No New Discharge Prescriptions: New Cephalexin [Keflex] 500 mg PO Q6HR #40 cap Continue Insulin Aspart [NovoLOG (formulary)] 6 unit SQ AC-TID #1 vial metFORMIN HCL [Glucophage] 500 mg PO AC-BID Aspirin 81 mg PO DAILY Discontinued Insulin Detemir [Levemir] 18 unit SQ HS #1 vial Discharge Medication List Insulin Aspart [NovoLOG (formulary)] 6 unit SQ AC-TID #1 vial 02/27/17 [Rx] Aspirin 81 mg PO DAILY 08/30/17 [History] metFORMIN HCL [Glucophage] 500 mg PO AC-BID 05/16/18 [History] Cephalexin [Keflex] 500 mg PO Q6HR #40 cap 09/04/17 [Rx] Follow up Appointment(s)/Referral(s): Lucas Wells MD [STAFF PHYSICIAN] - 1 Week Jaye Tipton MD [STAFF PHYSICIAN] - 1 Week [facility] Visiting Nurse, [NON-STAFF] - Manuel Greer MD [Primary Care Provider] - 09/08/17 (Please make an appointment for patient to see Dr. Greer on Monday) Patient Instructions/Handouts: Toe Amputation (DC) Activity/Diet/Wound Care/Special Instructions: Cardiac, diabetic diet. Discharge Disposition: HOME WITH HOME HEALTH SERVICES
--- NOTE | 2017-09-04 12:19 | PN ---
PROGRESS NOTE DATE OF SERVICE: 09/04/2017 REASON FOR FOLLOWUP: Right diabetic foot infection with second toe gangrene, MSSA. INTERVAL HISTORY: The patient is afebrile. He is currently breathing comfortably. Denies having any chest pain or cough. No abdominal pain. Only pain to the right foot area. No drainage. PHYSICAL EXAMINATION: On examination, blood pressure 129/76, pulse 84, temperature 99. He is 96% on room air. General description is a middle-aged male lying in bed in no distress. RESPIRATORY SYSTEM: Unlabored breathing, clear to auscultation anteriorly. HEART: S1, S2. Regular rate and rhythm. ABDOMEN: Soft, no tenderness. Right foot amputation site looks clean with no swelling or any redness or any drainage. LABS: Wound culture with MSSA. Anaerobic culture so far negative. DIAGNOSTIC IMPRESSION AND PLAN: Patient with right diabetic foot infection Doty's grade 4 with right second toe gangrene, status post amputation. As infected part has been removed and the patient was not bacteremic, the patient did not want to go IV antibiotic, will switch him over to Keflex 500 mg p.o. q.6 hours for 10 days. He has been advised if any swelling or any redness after he goes home to let us know right away. MMODL / IJN: [id number] /
[2017-09-04 12:24] LABS: Glucose,Whole Blood 99 mg/dL (75-99)
== END 2017-09-04 12:53 | disposition home health service (06) | DRG 617 ==
LOC: EC 13:30 → 4MS4W 16:01
PROVIDERS: ADMIT Family Medicine; ATTEND Family Medicine
PROC: 0Y6R0Z1 Detachment at Right 2nd Toe, High, Open Approach (ICD-10-PCS; principal; 2017-09-01 12:30)
DX: E11.621 Type 2 diabetes mellitus with foot ulcer (principal); E11.52 Type 2 diabetes mellitus with diabetic peripheral angiopathy with gangrene; E78.5 Hyperlipidemia, unspecified; E11.40 Type 2 diabetes mellitus with diabetic neuropathy, unspecified; I10 Essential (primary) hypertension; L03.031 Cellulitis of right toe; L97.519 Non-pressure chronic ulcer of other part of right foot with unspecified severity; Z79.4 Long term (current) use of insulin; Z79.82 Long term (current) use of aspirin; Z80.0 Family history of malignant neoplasm of digestive organs; Z87.891 Personal history of nicotine dependence; Z88.0 Allergy status to penicillin; Z89.411 Acquired absence of right great toe; Z79.899 Other long term (current) drug therapy; B95.61 Methicillin susceptible Staphylococcus aureus infection as the cause of diseases classified elsewhere
CPT/HCPCS: 36415; 71046; 80048; 80053; 80202; 83036; 85025; 87040; 87070; 87075; 87077; 87186; 87205; 88305; 88311; 96365; 96366; 99284

== ENCOUNTER → 2020-10-21 | Outpatient (CLI) | payer OTHER, MEDICARE | END | disposition home or self-care (01) | CPT/HCPCS: 80053; 80074; 82378; 82150; 82248; 82977; 83690; 82105; 86301; 71260; 74177; Q9967 ==

== ENCOUNTER → 2020-11-27 | Outpatient (CLI) | payer OTHER, MEDICARE ==
--- NOTE | 2020-11-27 09:54 | US ---
EXAMINATION TYPE: US liver DATE OF EXAM: 11/27/2020 COMPARISON: None CLINICAL HISTORY: R74.01 Elevation of levels of liver transaminase. Abnormal labs EXAM MEASUREMENTS: Liver Length: 14.9 cm Gallbladder Wall: 0.3 cm CBD: 0.4 cm Right Kidney: 10.8 x 5.6 x 5.7 cm Pancreas: Tail obscured by overlying bowel gas, heterogenous Liver: Appears coarse Gallbladder: Compacted with stones with minimal GB lumen seen Evidence for sonographic Nick's sign: neg CBD: wnl, limited due to shadowing from GB stones Right Kidney: No hydronephrosis or masses seen IMPRESSION: 1. Cholelithiasis.
== END | disposition home or self-care (01) ==
LOC: RADUSWWP 09:10
PROVIDERS: ATTEND Family Medicine
DX: K80.20 Calculus of gallbladder without cholecystitis without obstruction (principal); R74.01 Elevation of levels of liver transaminase levels
CPT/HCPCS: 76705

== ENCOUNTER → 2021-05-17 | Outpatient (CLI) | payer OTHER, MEDICARE ==
--- NOTE | 2021-05-17 15:07 | US ---
EXAMINATION TYPE: US thyroid st tissue head/neck DATE OF EXAM: 05/17/2021 COMPARISON: NONE CLINICAL HISTORY: 61-year-old male R94.6 ABNORMAL RESULTS OF THYROID FUNCTION STUDIES. Abnormal labs. Not on thyroid meds. Technique: Multiple sonographic images of the thyroid gland are obtained. FINDINGS: GLAND SIZE: Right Lobe: 4.7 x 1.9 x 1.7 cm Overall Parenchyma: Mildly heterogeneous and hyperemic. Left Lobe: 4.3 x 1.8 x 1.5 cm Overall Parenchyma: Mildly heterogeneous and hyperemic. Isthmus Thickness: 0.3 cm NODULES RIGHT: # of nodules measured on right: 0 LEFT: # of nodules measured on left: 0 ISTHMUS: # of nodules measured in the isthmus: 0 Bilateral neck scanned, no evidence of lymphadenopathy. IMPRESSION: Mildly heterogeneous and hyperemic glandular parenchyma. No discrete nodule. Correlate to exclude goi ter or diffuse thyroiditis.
== END | disposition home or self-care (01) ==
LOC: RADUSWWP 12:57
PROVIDERS: ATTEND Family Medicine
DX: R94.6 Abnormal results of thyroid function studies (principal)
CPT/HCPCS: 76536

== ENCOUNTER → 2021-06-30 | Outpatient (CLI) | payer OTHER, MEDICARE ==
[2021-07-01 01:40] LABS: T4, Free (Free Thyroxine) 1.07 ng/dL (0.800-1.800)
== END | disposition home or self-care (01) ==
LOC: LABWHC1 09:15
PROVIDERS: ATTEND Internal Medicine Endocrinology, Diabetes & Metabolism
DX: E05.90 Thyrotoxicosis, unspecified without thyrotoxic crisis or storm (principal)
CPT/HCPCS: 36415; 84439; 84443; 84445; 84481

== ENCOUNTER → 2021-06-30 | Outpatient (CLI) | payer OTHER, MEDICARE ==
--- NOTE | 2021-07-01 10:10 | NM ---
EXAMINATION TYPE: NM thyroid image w uptake DATE OF EXAM: 07/01/2021 COMPARISON: NONE HISTORY: E05.90 THYROXTOXICOSIS TECHNIQUE: Thyroid iodine uptake is calculated and images performed after the oral administration of 319 uCi 1-123 Capsule. FINDINGS: There is normal distribution of activity throughout the gland. The 4 hour iodine uptake is calculated at 3.2% (normal range 8-14%). The 24-hour iodine uptake is calculated at 9.5% (normal ran ge 15-35%). Thyroid imaging demonstrates homogeneous distribution radiotracer without evidence for hot or cold no dule. IMPRESSION: Diminished 4 and 24-hour uptake.
== END | disposition home or self-care (01) ==
LOC: RADNMMAIN 08:23
PROVIDERS: ATTEND Internal Medicine Endocrinology, Diabetes & Metabolism
DX: E05.90 Thyrotoxicosis, unspecified without thyrotoxic crisis or storm (principal)
CPT/HCPCS: 78014; A9516

== ENCOUNTER → 2021-09-15 | Outpatient (CLI) | payer OTHER, MEDICARE ==
[2021-09-15 18:17] LABS: T4, Free (Free Thyroxine) 0.95 ng/dL (0.800-1.800)
== END | disposition home or self-care (01) ==
LOC: LABWHC1 13:21
PROVIDERS: ATTEND Internal Medicine Endocrinology, Diabetes & Metabolism
DX: E05.90 Thyrotoxicosis, unspecified without thyrotoxic crisis or storm (principal)
CPT/HCPCS: 36415; 84439; 84443; 84480

== ENCOUNTER → 2022-01-06 | Outpatient (CLI) | payer OTHER, MEDICARE ==
[2022-01-06 17:14] LABS: T4, Free (Free Thyroxine) 1.04 ng/dL (0.800-1.800)
== END | disposition home or self-care (01) ==
LOC: LABWHC1 09:05
PROVIDERS: ATTEND Internal Medicine Endocrinology, Diabetes & Metabolism
DX: E05.90 Thyrotoxicosis, unspecified without thyrotoxic crisis or storm (principal)
CPT/HCPCS: 36415; 84439; 84443; 84480

== ENCOUNTER → 2022-06-30 | Outpatient (CLI) | payer BC, MEDICARE ==
[2022-06-30 15:59] LABS: T4, Free (Free Thyroxine) 1.15 ng/dL (0.800-1.800)
== END | disposition home or self-care (01) ==
LOC: LABWHC1 09:16
PROVIDERS: ATTEND Internal Medicine Endocrinology, Diabetes & Metabolism
DX: E05.90 Thyrotoxicosis, unspecified without thyrotoxic crisis or storm (principal)
CPT/HCPCS: 36415; 84439; 84443; 84480